=== PATIENT | female | born 1970 | race Caucasian/White ===

== ENCOUNTER → 2017-04-24 11:21 | Outpatient (CLI) | payer OTHER, SELFPAY ==
[2016-07-05 15:48] VITALS: BP 111/70; BMI 26.3
--- NOTE | 2017-04-24 11:36 | RAD_ITS ---
STUDY: X-RAY - LUMBAR SPINE REASON FOR EXAM: Female, 46 years old. Low back pain TECHNIQUE: 3 view(s) of the lumbar spine were obtained. COMPARISON: Previous study of 07/05/2016 FINDINGS: Normal lumbar lordosis. There is no substantial scoliosis. There is a normal alignment of the vertebrae. There is mild diffuse endplate spondylosis. There is mild disc space narrowing at the L5-S1 level. There is no demonstrated fracture. There is a 1.3 cm sclerotic focus of the L3 body stable in the interval and most likely representing benign process such as bone island. RAD/Lumbar Spine 2 or 3 Views IMPRESSION: Degenerative changes of the spine, as detailed above. 1.3 cm sclerotic focus of the L3 body stable in the interval and most likely representing benign process such as bone island. There is no evidence of fracture or spondylolisthesis. Electronically Signed: Mikel Bridges MD at 23:57 EST , Service support ,
== END ==
PROVIDERS: Family Provider Family Medicine; PCP Family Medicine
DX: M54.5 Low back pain (principal)
CPT/HCPCS: 72100

== ENCOUNTER 2017-05-07 15:00 | Outpatient (RCR) | payer OTHER, SELFPAY ==
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
--- NOTE | 2017-04-26 17:39 | HP.PTREVAL_ITS ---
Stefanie Anderson, , DONNY.CHRISTIANE It has been my pleasure to treat KRUNAL RUBIO over the last 6 visits for S/ P LUMBAR MICRODISCECTOMY LEFT L5S1 02/08/17 FOR HNP. Please see the progress note below for an update on the physical therapy plan of care! Subjective: pt seen by PT prior to this session. RX time was short d/t PT ran over w/ pt. Objective/Function: pt scheduled for 2 appt in the pool. pt is involved in the care of her father w/ cancer and is trying her hardest to get her PT appts taken care of. Plan Plan: Cont w/ POC both on land and in pool. Goals Goal 1:: DECREASE C/O LOW BACK AND LLE SX'S. Goal Time Frame: 4-6 Weeks Goal Progress: Progressing Goal 2:: IMPROVE LIFTING, SITTING, STANDING, SLEEP, TRAVEL AND HOMEMAKING/ EMPLYMENT FUNCTION. Goal Time Frame: 4-6 Weeks Goal Progress: Progressing Goal 3:: INSTRUCT IN PROPHYLAXIS Goal Time Frame: 4-6 Weeks Goal Progress: Progressing Anticipated Interventions Patient/Client Instruction: Educate patient on: Condition, Plan of Care, Risk Factors, Benefits of Fitness Program For the Purpose of:: To improve self management Therapeutic Exercise to Include: Strength training, Body mechanics, Postural training, Flexibilty training, Dynamic Lumbar Stabilization For the Purpose of:: To improve ability of physical actions for home/community/ work/leisure Cryotherapy (ice pack, ice massage): Yes Thermo therapy (hot pack): Yes For the Purpose of:: To decrease pain, To decrease swelling/inflammation Please do not hesitate to contact me at [phone] by phone or Fax: if you have questions or concerns regarding this new plan of care! Sincerely, Jasmyne Marinelli
--- NOTE | 2017-09-21 14:26 | HP.PTDCNRP_ITS ---
HP - Discharge Summary (1) - Patient Information KRUNAL RUBIO was seen in my office for initial evaluation on 04/05/17. The following Plan of Care was established for this patient: Initial Frequency: 2-3x /Week Initial Duration: 4-6 Weeks - Anticipated Interventions Patient/Client Instruction: Educate patient on: Condition, Plan of Care, Risk Factors, Benefits of Fitness Program For the Purpose of:: To improve self management Therapeutic Exercise to Include: Strength training, Body mechanics, Postural training, Flexibilty training, Dynamic Lumbar Stabilization For the Purpose of:: To improve ability of physical actions for home/community/ work/leisure Cryotherapy (ice pack, ice massage): Yes Thermo therapy (hot pack): Yes For the Purpose of:: To decrease pain, To decrease swelling/inflammation This patient was last seen in our office 05/07/17. Pertinent comments regarding their Physical therapy will appear below: This patient has not returned to Physical Therapy and is appropriate to return to MD for further follow-up as needed. At this point I will be discontinuing this patient from physical therapy. I would be happy to see this patient again in the future if found appropriate by the physician. Thank you! Jasmyne Marinelli
== END 2017-05-07 19:00 | disposition home or self-care (01) ==
LOC: PT 15:00
PROVIDERS: Family Provider Family Medicine; PCP Family Medicine; Visit Provider Nurse Practitioner Acute Care
DX: M51.26 Other intervertebral disc displacement, lumbar region (principal)
CPT/HCPCS: 97110; 97113; 97162; 97530

== ENCOUNTER 2017-08-04 15:00 | Outpatient (RCR) | payer OTHER, SELFPAY ==
--- NOTE | 2017-07-14 16:48 | HP.PTEVAL ---
Patient's Visit Information KRUNAL RUBIO is a 46 year old F referred to Physical Therapy by Kanu Jackson with a diagnosis of LOW BACK PAIN. Date of Evaluation: 07/14/17 Physical Therapist: Phong Moore, PT, - Visit Plan Frequency: 2x /Week Duration: 4 Weeks Plan: CHELSEA EX REIL EVERY 1-2 HOURS,LE FLEXABLITY,PROGRESS WITH DLS FOCUS ON TA NUETRAL,MODALITIES PRN POSTIRAL EX'S - Subjective Subjective: This 46 y/o female presents to physical therapy with low back pain . Patient had lumbar disectomy Feb [address] Garza at [facility]. Patient pain better in leg post surgery.Patient had couple session PT due to personal issue. Seen last Feb ,but attempted to see a follow up. So, decided to see family DR for PT. Prior to surgery patient had radicular symptoms in legs ,tried PT made symptoms worse then MRI.Due to patient unable to do therapy with personal issues in life unable to exercise ,patient has concerns of budging. Patient has intermmtant pain in lateral hips and lumbar pain. Symptoms wosre with job demands ,standing,ocassionally bending. Symptoms better with walking ,moving around. Coughing -sneezing negative.Bowel/bladder -. Denies parathesia/tingling. SOCIAL: single. 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 GAIT: normal baldomero reciprocal. PALAPTION: mild tenderness L-S spine. NEURO: denies parathesia/tingling,reflexes L3-4,L4-5,L5-S1 2/3. MMT: quads/hams /hip/ankle 4/5. FLEXABLITY; hams min/mod left. LUMBAR ROM: flexion min loss,extension min loss,side glides min loss. SYMMTRIES : align - Special Tests L/S Slump test left side: Negative L/S Slump test right side: Negative L/S Left Straight Leg Raise: Negative L/S Right Straight Leg Raise: Negative Lumbar Standing: Flexion - Mechanical Response: No effect Lumbar Standing: Flexion - Symptoms During Testing: No effect Lumbar Standing: Flexion - Symptoms After Testing: No effect Lumbar Standing: Extension - Mechanical Response: No effect Lumbar Standing: Extension - Symptoms During Testing: No effect Lumbar Standing: Extension - Symptoms After Testing: No effect Lumbar Lying: Flexion - Mechanical Response: No effect Lumbar Lying: Flexion - Symptoms During Testing: No effect Lumbar Lying: Flexion - Symptoms After Testing: No effect Lumbar Lying: Extension - Mechanical Response: No effect Lumbar Lying: Extension - Symptoms During Testing: Decreases Lumbar Lying: Extension - Symptoms After Testing: Better - Goals Goal 1:: Independant with HEP Goal Time Frame: 4-6 Weeks Goal 2:: Independant with posture/body mechanics Goal Time Frame: 4-6 Weeks Goal 3:: Decrease episode of lumbar and leg symptoms by 70 % or greater to improve function. Goal Time Frame: 4-6 Weeks Goal 4:: Patient improve lumbar ROM for function of recovery Goal Time Frame: 4-6 Weeks Goal 5:: Patient be able to perform ADL'S anf job demands with min limitations Goal Time Frame: 4-6 Weeks - Rehabilitation Potential Physical Therapy Diagnosis: This patient presents with low back pain which patient undwerwent s/p lumbar disectomy in Jan 2017 never finished PT due to personal issues ,return to work and stated pain intermmittant in lumbar and leg and occassional swelling in knee.Patient requires further education posture/body mechanics,DLS,chelsea ex's Rehabilitation Potential: Good - Anticipated Interventions Patient/Client Instruction: Educate patient on: Condition, Plan of Care For the Purpose of:: To decrease pain, To increase ROM, To improve muscle performance and motor function, To improve ability to perform ADL's, To increase tolerance to activity/condition/position, To improve performance and independence with ADL's, To improve ability of physical actions for home/community/work/leisure, To improve health of tissue, To decrease soft tissue restriction, To increase flexibility/ROM, To reduce risk of recurrence, To improve ability to perform tasks related to life management Therapeutic Exercise to Include: Strength training, Postural training, Flexibilty training, Dynamic Lumbar Stabilization, Chelsea Exercises For the Purpose of:: To decrease pain, To increase ROM, To improve muscle performance and motor function, To improve ability to perform ADL's, To increase tolerance to activity/condition/position, To improve ability of physical actions for home/community/work/leisure, To improve health of tissue, To decrease soft tissue restriction, To increase flexibility/ROM, To reduce risk of recurrence, To improve health and function, To improve ability to perform tasks related to life management TENS: Yes IF ES: Yes Cryotherapy (ice pack, ice massage): Yes Thermo therapy (hot pack): Yes Ultrasound (thermal/non thermal): Yes For the Purpose of:: To decrease pain, To increase ROM, To improve nutrient delivery to tissue, To increase oxygenation perfusion, To improve health of tissue, To decrease soft tissue restriction Thank you for the opportunity to evaluate your patient. For Medicare and Medicare HMO plans, please review the plan of care and approve it. It will need to be FAXED BACK to us at [phone] for Medicare purposes. Please let me know if there are questions or concerns regarding this plan of care. Physician Signature: Date:
--- NOTE | 2017-11-16 10:36 | HP.PTDCNRP_ITS ---
HP - Discharge Summary (1) - Patient Information KRUNAL RUBIO was seen in my office for initial evaluation on 07/14/17. The following Plan of Care was established for this patient: Initial Frequency: 2x /Week Initial Duration: 4 Weeks - Anticipated Interventions Patient/Client Instruction: Educate patient on: Condition, Plan of Care For the Purpose of:: To decrease pain, To increase ROM, To improve muscle performance and motor function, To improve ability to perform ADL's, To increase tolerance to activity/condition/position, To improve performance and independence with ADL's, To improve ability of physical actions for home/ community/work/leisure, To improve health of tissue, To decrease soft tissue restriction, To increase flexibility/ROM, To reduce risk of recurrence, To improve ability to perform tasks related to life management Therapeutic Exercise to Include: Strength training, Postural training, Flexibilty training, Dynamic Lumbar Stabilization, Chelsea Exercises For the Purpose of:: To decrease pain, To increase ROM, To improve muscle performance and motor function, To improve ability to perform ADL's, To increase tolerance to activity/condition/position, To improve ability of physical actions for home/community/work/leisure, To improve health of tissue, To decrease soft tissue restriction, To increase flexibility/ROM, To reduce risk of recurrence, To improve health and function, To improve ability to perform tasks related to life management TENS: Yes IF ES: Yes Cryotherapy (ice pack, ice massage): Yes Thermo therapy (hot pack): Yes Ultrasound (thermal/non thermal): Yes For the Purpose of:: To decrease pain, To increase ROM, To improve nutrient delivery to tissue, To increase oxygenation perfusion, To improve health of tissue, To decrease soft tissue restriction This patient was last seen in our office 08/04/17. Pertinent comments regarding their Physical therapy will appear below: Patient seen for PT for lumbar pain . Patient PT constisted of DLS,modalities , chelsea ex's and postural ex's. Patient progressing with decreasing pain At this point I will be discontinuing this patient from physical therapy. I would be happy to see this patient again in the future if found appropriate by the physician. Thank you! Phong Moore, PT,
== END 2017-08-04 19:00 | disposition home or self-care (01) ==
LOC: PT 15:00
PROVIDERS: Family Provider Family Medicine; PCP Family Medicine; Visit Provider Family Medicine
DX: M54.5 Low back pain (principal)
CPT/HCPCS: 97110; 97162

== ENCOUNTER 2017-09-12 13:17 | Emergency (ER) | payer OTHER, SELFPAY ==
[2017-09-12 13:18] VITALS: BP 121/68; PULSE 86; RESP 17; TEMP 36.9; O2SAT 96; BMI 27.8
--- NOTE | 2017-09-12 14:30 | ED.VISSUMM ---
- ER Visit Summary Date of Service: 09/12/17 Chief Complaint: [] Lumbar back pain surgery January 2017 History of Present Illness: The patient is a 46 F [] patient reports history of lumbar back pain requiring surgery as above, she indicates that intermittent lumbar back pain and pain shooting to her buttock, since that surgery she did not have total relief of her symptoms, she recently indicates she started new activities she is bending quite a bit more she indicates she has not followed up with her back surgeons recently, she has been taking nonsteroidal anti-inflammatories with partial relief of her symptoms she has no bowel or bladder complaints no perineal anesthesia she is able to execute her normal daily activities without difficulty she presents for pain control Physical Examination: [] She is in no distress her vital signs are normal she has a healed incision to lumbar back this is the focus of her pain head neck chest unremarkable abdomen soft nontender the back is subjectively discomfort but nothing focal she is able to stand and walk without difficulty she can heel raise toe raise toe raise bend her knees and walk around the room without difficulty no signs of cauda equina or anything acute, she assures me this is the pain she has had intermittently before and since her lumbar back surgery Test Results: [] Emergency Department Course and Treatment: [] Time there does not appear to be anything acute or life-threatening or new I have explained the above to the patient that her pain management cannot be assumed from the emergency department and that her pain management should be assumed based on the recommendations of multiple regulators by her primary care physicians or her back specialist, at this time she was given Toradol IM she will be discharged on Naprosyn 500 twice daily and she will be given 4 [place] tablets to use as a rescue medicine with instructions that all further pain management must be by her primary care physicians or other providers Treatment Plan: [] Disposition: [] Home stable Impression: [] Acute recurrent lumbar back pain recent lumbar back surgery January 2017 This note was generated with [employer] dictation software. It may contain incorrect words, spelling, and punctuation that were not noted in review of the chart prior to signing ED Disposition - Plan for ED Patient: Chief Complaint: Back Referrals: Kanu Jackson MD [Primary Care Provider] -
--- NOTE | 2017-09-12 14:33 | ED.DEP ---
ED Disposition - Plan for ED Patient: Chief Complaint: Back Instructions: ED Spasm Back No Trauma Prescriptions: Hydrocodone Bitart/Apap 5-325 [[place] 5MG-325MG] 1 tab PO Q4H PRN PRN 2 Days #4 tab PRN Reason: Pain Naproxen [Naprosyn] 500 mg PO BID PRN #20 tab Referrals: Kanu Jackson MD [Primary Care Provider] -
[2017-09-12] MEDS: Ketorolac 60 MG/2 ML Vial IM (14:45)
[2017-09-12 15:01] VITALS: PULSE 88; RESP 16
== END 2017-09-12 15:02 | disposition home or self-care (01) ==
PROVIDERS: Emergency Provider Emergency Medicine; Family Provider Family Medicine; PCP Family Medicine
DX: M54.5 Low back pain (principal); Z98.890 Other specified postprocedural states
CPT/HCPCS: 96372; 99283

== ENCOUNTER → 2017-11-04 16:54 | Outpatient (CLI) | payer OTHER, SELFPAY ==
[2017-11-04 17:46] LABS: Anion Gap 9 (5-15); BUN 16 mg/dL (7-18); BUN/Creat Ratio 20.7 RATIO (10-20); CRP, High Sensitivity Cardiac 1.67 mg/L; Calcium,Total 9.2 mg/dL (8.5-10.1); Chloride 106 mmol/L (98-107); Cholesterol 210 mg/dL (200); Creatinine, Serum 0.77 mg/dL (0.55-1.02); EST Glomerular Filtration Rate 84 mL/min (>60); Est Glom Filt Rate - Afr Amer 102 mL/min (>60); Glucose 108 mg/dL (74-106); High Density Lipoprotein 70 mg/dL; Potassium 3.8 mmol/L (3.5-5.1); Sodium Level 141 mmol/L (136-145); Triglycerides 111 mg/dL; Very Low Density Lipoprotein 22 mg/dL (5-40)
[2017-11-04 18:17] LABS: Erythrocyte Sedimentation Rate 9 mm/hr (0-20)
[2017-11-09 10:27] LABS: ANTINUCLEAR ANTIBODIES DIRECT Negative (Negative)
== END ==
PROVIDERS: Family Provider Family Medicine; PCP Family Medicine; Visit Provider Family Medicine
DX: Z00.00 Encounter for general adult medical examination without abnormal findings (principal); M25.50 Pain in unspecified joint
CPT/HCPCS: 36415; 80048; 80061; 85652; 86038; 86141

== ENCOUNTER → 2018-03-02 18:41 | Outpatient (CLI) | payer OTHER, SELFPAY ==
--- OUTSIDE RECORDS SUMMARY | 2018-04-18 22:34 | XMS RPT_ITS ---
:1970 Author Organization OHIP Care Team Providers Name Role Phone No Doctor Assigned, Nodr Admitting Unavailable No Doctor Assigned, Nodr Attending Unavailable MARCELO SANON Attending Unavailable Kanu Jackson Attending Unavailable Kanu Jackson Primary Care Unavailable Kanu Jackson Referring Unavailable Stefanie Anderson MEAT PULLER-C Attending Unavailable Stefanie Anderson MEAT PULLER-C Referring Unavailable Kanu Vicente Primary Care Unavailable HAYLEY JARAMILLO Attending Unavailable HAYLEY JARAMILLO Referring Unavailable Kanu Vicente Primary Care Unavailable Kanu Jackson Attending Unavailable Kanu Jackson Primary Care Unavailable Renetta Kanu Referring Unavailable Kanu Jackson Primary Care Unavailable Randy Puente Attending Unavailable Renetta, Kanu Attending Unavailable Renetta, Kanu Primary Care Unavailable PROBLEMS PROBLEMS DATE TYPE CONDITION / CODE ATTENDING STATUS SOURCE 03/03/2018 Unknown R30.0 - Dysuria / Kanu Jackson Active [facility] R30.0(ICD-10) [facility] Repository 11/04/2017 Unknown M25.50 - Pain in Kanu Jackson Active [facility] unspecified joint / Community M25.50(ICD-10) Hospital Repository 11/04/2017 Unknown Z00.00 - Encounter Kanu Jackson Active [facility] for general adult [facility] without abnormal Repository findings / Z00.00(ICD-10) 09/13/2017 Admitting Lumbago with KALAPODIS, Civo Diagnosis sciatica, left side MARCEL[place] ([place] / M54.42(ICD-10) Repository 09/12/2017 Unknown R52 - Pain, Kwame, Active [facility] unspecified / Randy Community R52(ICD-10) Hospital Repository 11/18/2017 Unknown M54.5 - Low back Kanu Jackson Active [place] pain / Community M54.5(ICD-10) Hospital Repository 09/23/2017 Unknown M51.26 - Other Ops[place]nick, Active [place] intervertebral disc Stefanie MEAT PULLER-C [facility] lumbar region / Repository M51.26(ICD-10) PROCEDURES PROCEDURES No Procedure Records FoundRESULTS RESULTS Observed: 03/02/2018 Status: F Source: [facility] CULTURE, URINE 3:30 PM [facility] [place] [facility] Urine Culture ORGANISM 1: Mixed Gram Positive Organisms Conklin Count 11,000-25,000 MIX CULTURE Mixed contaminants. Submit a new specimen if indicated. Performed By: #### M100.0650 #### [facility] [place], [place], [id number] BASIC METABOLIC Collected: 11/04/2017 Status: F Source: [facility] PROFILE (BMP) 4:56 PM [facility] REPOSITORY TYPE CODE TESTS RESULT OUT OF RANGE REFERENCE UNITS LAB L501.0100 74-106 mg/dL High GLU 108 Result Comment: Fasting Glucose result from 100 to 125 mg/dL suggests IMPAIRED HOMEOSTASIS per A.D.A. criteria. Please note revised GLUCOSE reference range effective 2017. LAB L501.1000 7-18 mg/dL Normal BUN 16 LAB L501.1100 0.55-1.02 mg/dL Normal CREAT,SERUM 0.77 Result Comment: The validity of the calculated GFR AND GFRAA in patients over 70 years has not been determined. Clinical correlation is essential. LAB L501.1110 >60 mL/min Normal EST GFR 84 Result Comment: Non- GFR Calc LAB L501.1115 >60 mL/min Normal EST GFR - AA 102 Result Comment: GFR Calc LAB L501.1300 10-20 RATIO High BUN/CRE 20.7 LAB L501.2200 8.5-10.1 mg/dL CA Normal 9.2 LAB L501.5300 136-145 mmol/L NA Normal 141 LAB L501.5600 3.5-5.1 mmol/L K Normal 3.8 LAB L501.5900 98-107 mmol/L CL Normal 106 LAB L501.6100 21.0-32.0 mmol/L Normal CO2 26.0 LAB L501.6200 5-15 Normal GAP 9 Performed By: #### L500.2500, L500.4100, L501.6750 #### [facility] [address] [place], [address] LIPID PROFILE Collected: 11/04/2017 Status: F Source: BARNET 4:56 PM [facility] [place] [facility] TYPE CODE TESTS RESULT OUT OF RANGE REFERENCE UNITS LAB L501.4900 200 mg/dL High CHOL 210 Result Comment: <200 mg/dL Desirable 200-240 mg/dL Borderline >240 mg/dL High Risk LAB L501.5000 mg/dL Normal TRIG 111 Result Comment: The drugs N-Acetylcysteine and Metamizole may falsely depress this assay. Serum Triglycerides Reference Interval Normal <150 mg/dL Borderline high 150 - 199 mg/dL High 200 - 499 mg/dL Very High > or = 500 mg/dL LAB L501.6400 mg/dL Normal HDL 70 Result Comment: The drugs N-Acetylcysteine and Metamizole may falsely depress this assay. Reference Range HDL <40 mg/dL Low HDL Cholesterol HDL >or= 60 mg/dL High HDL Cholesterol LAB L501.6500 0-130 mg/dL Normal LDL 118 LAB L501.6600 5-40 mg/dL Normal VLDL 22 Performed By: #### L500.2500, L500.4100, L501.6750 #### [facility] [address] [place], [address] CRP, HIGH SENSITIVITY Collected: 11/04/2017 Status: F Source: [facility] CARDIAC 4:56 PM [facility] [place] [facility] TYPE CODE TESTS RESULT OUT OF RANGE REFERENCE UNITS LAB L501.6750 mg/L Normal CRP HIGH 1.67 SENS Result Comment: Low Relative Risk of CVD <1.0 mg/L Average Relative Risk of CVD 1.0 - 3.0 mg/L High Relative Risk of CVD >3.0 mg/L Performed By: #### L500.2500, L500.4100, L501.6750 #### [facility] [address] [facility] [place], [address] ERYTHROCYTE SED RATE Collected: 11/04/2017 Status: F Source: BARNET 4:56 PM [facility] [place] [facility] TYPE CODE TESTS RESULT OUT OF RANGE REFERENCE UNITS LAB L102.0000 0-20 mm/hr Normal SED RATE 9 Performed By: #### L101.9900 #### [facility] [place], [address] ANTINUCLEAR ANTIBODIES Collected: 11/04/2017 Status: F Source: [facility] DIRECT 4:56 PM [facility] [place] [facility] TYPE CODE TESTS RESULT OUT OF RANGE REFERENCE UNITS LAB L3100.5475 Negative Normal Negative LYDIA-DIRECT Result Comment: Performed at: - [facility] [id number] Bias Binding Folder: Trung Lind PhD, Phone: [phone] Performed By: #### L3100.5475 #### [facility] (refer to report for specific site) refer to report for address and phone number EMERGENCY DEPARTMENT Observed: 09/12/2017 Status: F Source: [facility] SUMMARY 3:24 PM [facility] [place] [facility] Medical Records Department [address] [place] [address] Emergency Department Summary 09/12/17 1430 MR#: [id number] Acct: [id number] Name: GIA RUBIO Rep #: [id number] : 1970 46 From: Randy Puente MD PCP: Kanu Jackson MD Status: DEP ER - ER Visit Summary Date of Service: 09/12/17 Chief Complaint: [] Lumbar back pain surgery January 2017 History of Present Illness: The patient is a 46 F [] patient reports history of lumbar back pain requiring surgery as above, she indicates that intermittent lumbar back pain and pain shooting to her buttock, since that surgery she did not have total relief of her symptoms, she recently indicates she started new activities she is bending quite a bit more she indicates she has not followed up with her back surgeons recently, she has been taking nonsteroidal anti-inflammatories with partial relief of her symptoms she has no bowel or bladder complaints no perineal anesthesia she is able to execute her normal daily activities without difficulty she presents for pain control Physical Examination: [] She is in no distress her vital signs are normal she has a healed incision to lumbar back this is the focus of her pain head neck chest unremarkable abdomen soft nontender the back is subjectively discomfort but nothing focal she is able to stand and walk without difficulty she can heel raise toe raise toe raise bend her knees and walk around the room without difficulty no signs of cauda equina or anything acute, she assures me this is the pain she has had intermittently before and since her lumbar back surgery Test Results: [] Emergency Department Course and Treatment: [] Time there does not appear to be anything acute or life-threatening or new I have explained the above to the patient that her pain management cannot be assumed from the emergency department and that her pain management should be assumed based on the recommendations of multiple regulators by her primary care physicians or her back specialist, at this time she was given Toradol IM she will be discharged on Naprosyn 500 twice daily and she will be given 4 [place]amp[place] tablets to use as a rescue medicine with instructions that all further pain management must be by her primary care physicians or other providers Treatment Plan: [] Disposition: [] Home stable Impression: [] Acute recurrent lumbar back pain recent lumbar back surgery January 2017 This note was generated with Beijingyichengation software. It may contain incorrect words, spelling, and punctuation that were not noted in review of the chart prior to signing ED Disposition - Plan for ED Patient: Chief Complaint: Back Referrals: Kanu Jackson MD [Primary Care Provider] - What to do if you have Problems For any increased pain, shortness of breath, bleeding, nausea or vomiting, chest pain, or any unexpected problems, contact your Primary Care Provider. Call [facility] ([phone]) or report to the closest Emergency Room. Call 911 if necessary. 09/12/17 1524 <Electronically signed by Randy Puente MD> Date Randy Puente MD Cosigner Signature (If Indicated): Date CC: Kanu Jackson MD DISCHARGE INSTRUCTION Observed: 09/12/2017 Status: F Source: BARNET 2:34 PM [facility] [place] [facility] Medical Records Department [address] [place] [address] Discharge Instruction 09/12/17 1433 MR#: [id number] Acct: [id number] Name: GIA RUBIO Rep #: [id number] : 1970 46 From: Randy Puente MD PCP: Kanu Jackson MD Status: REG ER ED Disposition - Plan for ED Patient: Chief Complaint: Back Instructions: ED Spasm Back No Trauma Prescriptions: Hydrocodone Bitart/Apap 5-325 [Hampden 5MG-325MG] 1 tab PO Q4H PRN PRN 2 Days #4 tab PRN Reason: Pain Naproxen [Naprosyn] 500 mg PO BID PRN #20 tab Referrals: Kanu Jackson MD [Primary Care Provider] - What to do if you have Problems For any increased pain, shortness of breath, bleeding, nausea or vomiting, chest pain, or any unexpected problems, contact your Primary Care Provider. Call [facility] ([phone]) or report to the closest Emergency Room. Call 911 if necessary. 09/12/17 1434 <Electronically signed by Randy Puente MD> Date Randy Puente MD Cosigner Signature (If Indicated): Date CC: Kanu Jackson MD INITAL EVALUATION (1) Observed: 07/15/2017 Status: F Source: ELIZABETH - PT 10:56 AM [facility] [place] [facility] [address] [place] [address] Fax REHABILITATION SERVICES INITIAL EVALUATION MR#: [id number] Acct: [id number] Name: GIA RUBIO Rep #: [id number] : 1970 46 From: Phong Moore PT, Cert. MDT, OCS Referring Dr.: Kanu Jackson MD Status: REG RCR Insurance: [facility] SELF PAY INSURANCE Patient's Visit Information GIA RUBIO is a 46 year old F referred to Physical Therapy by Kanu Jackson with a diagnosis of LOW BACK PAIN. Date of Evaluation: 07/14/17 Physical Therapist: Phong Moore PT, - Visit Plan Frequency: 2x /Week Duration: 4 Weeks Plan: ADILENE EX REIL EVERY 1-2 HOURS,LE FLEXABLITY,PROGRESS WITH DLS FOCUS ON TA NUETRAL,MODALITIES PRN POSTIRAL EX'S - Subjective Subjective: This 46 y/o female presents to physical therapy with low back pain . Patient had lumbar disectomy Feb [address] Garza at [facility]. Patient pain better in leg post surgery.Patient had couple session PT due to personal issue. Seen last Feb ,but attempted to see a follow up. So, decided to see family DR for PT. Prior to surgery patient had radicular symptoms in legs ,tried PT made symptoms worse then MRI.Due to patient unable to do therapy with personal issues in life unable to exercise ,patient has concerns of budging. Patient has intermmtant pain in lateral hips and lumbar pain. Symptoms wosre with job demands ,standing,ocassionally bending. Symptoms better with walking ,moving around. Coughing -sneezing negative.Bowel/bladder -. Denies parathesia/tingling. SOCIAL: single. 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 GAIT: normal baldomero reciprocal. PALAPTION: mild tenderness L-S spine. NEURO: denies parathesia/tingling,reflexes L3-4,L4-5,L5-S1 2/3. MMT: quads/hams /hip/ankle 4/5. FLEXABLITY; hams min/mod left. LUMBAR ROM: flexion min loss,extension min loss,side glides min loss. SYMMTRIES : align - Special Tests L/S Slump test left side: Negative L/S Slump test right side: Negative L/S Left Straight Leg Raise: Negative L/S Right Straight Leg Raise: Negative Lumbar Standing: Flexion - Mechanical Response: No effect Lumbar Standing: Flexion - Symptoms During Testing: No effect Lumbar Standing: Flexion - Symptoms After Testing: No effect Lumbar Standing: Extension - Mechanical Response: No effect Lumbar Standing: Extension - Symptoms During Testing: No effect Lumbar Standing: Extension - Symptoms After Testing: No effect Lumbar Lying: Flexion - Mechanical Response: No effect Lumbar Lying: Flexion - Symptoms During Testing: No effect Lumbar Lying: Flexion - Symptoms After Testing: No effect Lumbar Lying: Extension - Mechanical Response: No effect Lumbar Lying: Extension - Symptoms During Testing: Decreases Lumbar Lying: Extension - Symptoms After Testing: Better - Goals Goal 1:: Independant with HEP Goal Time Frame: 4-6 Weeks Goal 2:: Independant with posture/body mechanics Goal Time Frame: 4-6 Weeks Goal 3:: Decrease episode of lumbar and leg symptoms by 70 % or greater to improve function. Goal Time Frame: 4-6 Weeks Goal 4:: Patient improve lumbar ROM for function of recovery Goal Time Frame: 4-6 Weeks Goal 5:: Patient be able to perform ADL'S anf job demands with min limitations Goal Time Frame: 4-6 Weeks - Rehabilitation Potential Physical Therapy Diagnosis: This patient presents with low back pain which patient undwerwent s/p lumbar disectomy in Jan 2017 never finished PT due to personal issues ,return to work and stated pain intermmittant in lumbar and leg and occassional swelling in knee.Patient requires further education posture/body mechanics,DLS,adilene ex's Rehabilitation Potential: Good - Anticipated Interventions Patient/Client Instruction: Educate patient on: Condition, Plan of Care For the Purpose of:: To decrease pain, To increase ROM, To improve muscle performance and motor function, To improve ability to perform ADL's, To increase tolerance to activity/condition/position, To improve performance and independence with ADL's, To improve ability of physical actions for home/community/work/leisure, To improve health of tissue, To decrease soft tissue restriction, To increase flexibility/ROM, To reduce risk of recurrence, To improve ability to perform tasks related to life management Therapeutic Exercise to Include: Strength training, Postural training, Flexibilty training, Dynamic Lumbar Stabilization, Adilene Exercises For the Purpose of:: To decrease pain, To increase ROM, To improve muscle performance and motor function, To improve ability to perform ADL's, To increase tolerance to activity/condition/position, To improve ability of physical actions for home/community/work/leisure, To improve health of tissue, To decrease soft tissue restriction, To increase flexibility/ROM, To reduce risk of recurrence, To improve health and function, To improve ability to perform tasks related to life management TENS: Yes IF ES: Yes Cryotherapy (ice pack, ice massage): Yes Thermo therapy (hot pack): Yes Ultrasound (thermal/non thermal): Yes For the Purpose of:: To decrease pain, To increase ROM, To improve nutrient delivery to tissue, To increase oxygenation perfusion, To improve health of tissue, To decrease soft tissue restriction Thank you for the opportunity to evaluate your patient. For Medicare and Medicare HMO plans, please review the plan of care and approve it. It will need to be FAXED BACK to us at [phone] for Medicare purposes. Please let me know if there are questions or concerns regarding this plan of care. Physician Signature: Date: <Electronically signed by Phong Moore PT, Cert. T, OCS> 07/15/17 1056 CC: Kanu Jackson MD ANTON Signed For Medicare only, by signing this I certify the plan of care. Physicians Signature Date RE-EVALUATION - PT (1) Observed: 04/26/2017 Status: F Source: BARNET 5:39 PM [facility] [place] [facility] [facility] [place] [address] Fax REEVALUATION / MEDICARE RECERTIFICATION PHYSICAL THERAPY MR#: [id number] Acct: [id number] Name: GIA RUBIO Rep #: [id number] : 1970 46 From: Jasmyne Marinelli PT, Cert. T Referring Dr.: Stefanie Anderson Status: REG RCR Insurance: [facility] SELF PAY INSURANCE Stefanie Anderson, , DONNY.CHRISTIANE It has been my pleasure to treat GIA RUBIO over the last 6 visits for S/P LUMBAR MICRODISCECTOMY LEFT L5S1 02/08/17 FOR HNP. Please see the progress note below for an update on the physical therapy plan of care! Subjective: pt seen by PT prior to this session. RX time was short d/t PT ran over w/ pt. Objective/Function: pt scheduled for 2 appt in the pool. pt is involved in the care of her father w/ cancer and is trying her hardest to get her PT appts taken care of. Plan Plan: Cont w/ POC both on land and in pool. Goals Goal 1:: DECREASE C/O LOW BACK AND LLE SX'S. Goal Time Frame: 4-6 Weeks Goal Progress: Progressing Goal 2:: IMPROVE LIFTING, SITTING, STANDING, SLEEP, TRAVEL AND HOMEMAKING/EMPLYMENT FUNCTION. Goal Time Frame: 4-6 Weeks Goal Progress: Progressing Goal 3:: INSTRUCT IN PROPHYLAXIS Goal Time Frame: 4-6 Weeks Goal Progress: Progressing Anticipated Interventions Patient/Client Instruction: Educate patient on: Condition, Plan of Care, Risk Factors, Benefits of Fitness Program For the Purpose of:: To improve self management Therapeutic Exercise to Include: Strength training, Body mechanics, Postural training, Flexibilty training, Dynamic Lumbar Stabilization For the Purpose of:: To improve ability of physical actions for home/community/work/leisure Cryotherapy (ice pack, ice massage): Yes Thermo therapy (hot pack): Yes For the Purpose of:: To decrease pain, To decrease swelling/inflammation Please do not hesitate to contact me at [phone] by phone or if you have questions or concerns regarding this new plan of care! Sincerely, Jasmyne Marinelli <Electronically signed by Jasmyne Marinelli PT, Cert. MDT> 04/26/17 6891 CC: Stefanie Anderson; Kanu Jackson MD HORACIO Signed For Medicare only, by signing this I certify the plan of care. Physicians Signature Date LUMBAR SPINE 2 OR 3 Observed: 04/24/2017 Status: F Source: [place] VIEWS 11:35 AM [facility] [place] [facility] Imaging Services [address] [place] [address] Lumbar Spine 2 or 3 Views MR#: [id number] Acct: [id number] Name: GIA RUBIO Rep #: [id number] : 1970 F 46 From: Mikel Bridges MD PCP: Kanu Jackson MD Status: REG CLI Study: Lumbar Spine 2 or 3 Views Date of Exam: 04/24/17 Exam# [id number] Ordering Dr: [place]e Out o. STUDY: X-RAY - LUMBAR SPINE REASON FOR EXAM: Female, 46 years old. Low back pain TECHNIQUE: 3 view(s) of the lumbar spine were obtained. COMPARISON: Previous study of 07/05/2016 FINDINGS: Normal lumbar lordosis. There is no substantial scoliosis. There is a normal alignment of the vertebrae. There is mild diffuse endplate spondylosis. There is mild disc space narrowing at the L5-S1 level. There is no demonstrated fracture. There is a 1.3 cm sclerotic focus of the L3 body stable in the interval and most likely representing benign process such as bone island. RAD/Lumbar Spine 2 or 3 Views IMPRESSION: Degenerative changes of the spine, as detailed above. 1.3 cm sclerotic focus of the L3 body stable in the interval and most likely representing benign process such as bone island. There is no evidence of fracture or spondylolisthesis. Electronically Signed: Mikel Bridges MD at 23:57 EST , Service support , CC: OUT OF TOWN DOCTOR; Kanu Jackson MD Unemployment Claims Adjudicator: Signed ALLERGIES ALLERGIES DATE TYPE / CODE NAME / CODE REACTION SEVERITY SOURCE 09/12/2017 Drug oxycodone Nausea Unknown [facility] Allergy/416 HCl/[id number]([facility] 455395(SNOM XNORM) Repository ED CT) ENCOUNTERS ENCOUNTERS ADMIT/DISCHARGE ACCOUNT NUMBER ADMITTING ENCOUNTER LOCATION SOURCE CLASS 04/01/2018 [id number] No Doctor Ambulatory [facility] Nodr ding:SH.[facility] B Repository 03/02/2018 [id number] Ambulatory [facility] ding:LABSPEC Repository 11/04/2017 [id number] Ambulatory [facility] ding:MFPLAB Repository 09/13/2017/09/14/19 [id number] Emergency [facility] [place] [address] DRoom: System ([place]) D354Zhy: Repository E015 09/12/2017/09/13/19 [id number] Emergency [facility] ding:ED Repository 08/04/2017/08/05/19 [id number] Ambulatory [address] ding:PT Repository 05/07/2017/05/07/19 [id number] Ambulatory [address] ding:PT Repository 04/24/2017 [id number] [facility] ding:RAD Repository PAYERS PAYERS ENCOUNTER GUARANTOR PAYER SUBSCRIBER SOURCE 04/01/2018 GIA Jt Primary GIA J Mc WOODRUFFDOB: Insurance:Medical WOODRUFFDOB: [facility] Number: [id number] System [facility] Effective 8 [facility] Repository [address] [place] [address] Date:2018-04-[address] [place] [id number]: 2039-19-26Dkqv [id number]: Name:Medical [place] () (HP) () 03/02/2018 GIA Jt Primary GIA J Elizabeth [id number] Insurance:MEDICAL WOODRUFFDOB: [facility] [place] Number: Repository [id number]: 330 [id number] [phone] () Date:4305-55-11OU [address] [address]PP: 03/02/2018 Secondary NOT GIVENUNK Elizabeth Insurance:SELF PAY [facility] Number: Effective Repository Date:2018-03-02 11/04/2017 Gia Jt Primary Gia J [place] [id number] Insurance:[facility] [place] Number: Repository [id number]: 330 [id number] [phone] () Date:9736-92-24AR[address] [address]OI: 11/04/2017 Secondary NOT GIVENUNK [facility] Insurance:SELF PAY [facility] Number: Effective Repository Date:2017-11-04 09/12/2017 Gia J Primary Gia J [place] [id number] Insurance:MEDICAL WoodruffDOB: [facility] [id number] Number: Repository [id number]: 330 [id number] [phone] (HP) Date:2910-93-82QK [address] [place] [phone]: 09/12/2017 Secondary NOT GIVENUNK [place] Insurance:SELF PAY [facility] Number: Effective Repository Date:2017-09-12 08/04/2017 Gia J Primary Gia J Elizabeth [id number] Insurance:MEDICAL WoodruffDOB: [facility] 6210[place] Number: Repository [id number]: 330 [id number] [phone] (HP) Date:5050-05-29QL [address] [place] [phone]: 08/04/2017 Secondary NOT GIVENUNK [place] Insurance:SELF PAY [facility] Number: Effective Repository Date:2017-07-08 05/07/2017 Gia J Primary Gia J [place] [id number] Insurance:MEDICAL WoodruffDOB: [facility] [id number] Number: Repository [id number]: 330 [id number] [phone] (HP) Date:7416-68-55MI [address] [place] [phone]: 05/07/2017 Secondary NOT GIVENUNK [place] Insurance:SELF PAY [facility] Number: Effective Repository Date:2017-03-30 04/24/2017 Gia J Primary Gia J [place] [id number] Insurance:MEDICAL WoodruffDOB: [facility] [id number]: Repository [id number]: [phone] [id number] [phone] () Date:[id number], [place] [address]SD: 04/24/2017 Secondary NOT GIVENUNK [place] Insurance:SELF PAY [facility] Number: Effective Repository Date:2017-04-24
--- OUTSIDE RECORDS SUMMARY | 2018-04-18 22:34 | XMS RPT_ITS ---
:1970 Author Organization [facility] Address [address] [place] [id number] Phone Care Team Providers Name Role Phone Aftab GERBER, Alma Granger Unavailable Reason for Visit Reason For Visit Description Start Date Follow-up by complaint Preliminary reason for visit data, not yet signed by the author as of lower back pain Preliminary reason for visit data, not yet signed by the author as of Chief Complaint Chief Complaint Description Start Date lower back pain Preliminary chief complaint data, not yet signed by the author as of Instructions Instruction Description Start Date Patient advised to follow-up with Primary Care Physician for BMI management. Plan of Care Type Date Detail Appointment 12:45 PM Alma GERBER, [address] [facility], [facility], [place], [address], Pending order XR LUMBAR 4VWS FLEX/EX Pending order EMG/NCT bilateral lower extremity Pending order MRI lumbar with and without contrast Pending order EMG/NCT bilateral lower extremity Patient education \[id number] Medications Medication Instructions Start Stop Generic Name NDC Provider Date Date EC-NAPROSYN Take 1 tablet by NAPROXEN [id number] Alma Granger 500 MG TBEC mouth 2 times a 9 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-MARINA BUSPIRONE HCL two tabs a day BUSPIRONE [id number] Scot D 10 MG TABS 0 HCL Garza DO Conditions or Problems Problem Name Problem Onset Status Entry Provider Comment Standard Annotate Code Date Date Description DDD 70646825 Active Alma Granger Degeneration of L5-S1 (degenerative (SNOMED [place] lumbar disc disease), CT) 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 intervertebral lumbar disc S/P lumbar [id number] Active Stefanie History of microdiscectom (SNOMED 04/28 04/[address] [place] [address]) 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 procedure on lumbar spinal structure HNP (herniated 679574316 Active Stefanie 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), CT) 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 intervertebral lumbar disc Allergies, Adverse Reactions, Alerts Allergy Name Reaction Start Date Severity Status Provider Description PERCOCET Critical Active Scot D Garza (OXYCODONE-ACET DO AMINOPHEN TABS) Social History Concept Description Observation Name Observation Value Units Start Date Tobacco use and SMOK ADVICE Yes exposure Preliminary social history data, not yet signed by the author as of Vital Signs Date Name Value Unit Description BMI (Body Mass 27.70 kg/m2 Body Mass Index Index) [Ratio] Preliminary vital sign data, not yet signed by the author as of BP Diastolic 81 mm[Hg] blood pressure, diastolic Preliminary vital sign data, not yet signed by the author as of BP Systolic 116 mm[Hg] blood pressure, systolic Preliminary vital sign data, not yet signed by the author as of Heart Rate 68 /min pulse rate E&M Preliminary vital sign data, not yet signed by the author as of Height 66 [in_us] height E&M Preliminary vital sign data, not yet signed by the author as of Height 168 cm height in centimeters E&M Preliminary vital sign data, not yet signed by the author as of Weight Measured 171 [lb_av] weight E&M Preliminary vital sign data, not yet signed by the author as of Weight Measured 78 kg weight in kilograms E&M Preliminary vital sign data, not yet signed by the author as of Results Date Name Value Unit Range Flag Description Office Visit: Follow-up by complaint, Rm: 41 MEDS REVIEW Done Documentation of current medications (procedure) Preliminary observation data, not yet signed by the author as of SMOK ADVICE Yes Smoking cessation education (procedure) Preliminary observation data, not yet signed by the author as of Preliminary observation data, not yet signed by the author as of Clinical Summary: HMSPatient[facility] OOP account number Procedures No information available. Medications Administered No information available. Immunizations No information available. Advance Directives There may be information available, but it has not been provided by the sender. Assessments There may be information available, but it has not been provided by the sender. Review of Systems There may be information available, but it has not been provided by the sender. Family History There may be information available, but it has not been provided by the sender. History of Past Illness There may be information available, but it has not been provided by the sender. History of Present Illness There may be information available, but it has not been provided by the sender.
== END ==
PROVIDERS: Family Provider Family Medicine; PCP Family Medicine; Referring Provider Family Medicine; Visit Provider Family Medicine
DX: R30.0 Dysuria (principal)
CPT/HCPCS: 87086; 87088

== ENCOUNTER → 2018-06-09 10:41 | Outpatient (CLI) | payer OTHER, SELFPAY ==
--- NOTE | 2018-06-09 10:41 | NM_ITS ---
CLINICAL: 47-year-old female with reported history of low back pain. WHOLE BODY 99m Tc MDP RADIONUCLIDE BONE SCINTIGRAPHY COMPARISON: MRI of the lumbar spine report 07/24/2016 FINDINGS: Following the intravenous administration of 25.5 mCi of 99m Tc MDP, whole body bone images reveal: 1. Increased radiopharmaceutical concentration is identified in the mid cervical spine posteriorly on the left, the acromioclavicular compartments of both shoulders, sternoclavicular compartment of the left shoulder, ninth-10th thoracic vertebra posteriorly on the right, bilateral knee and ankle articulations. 2. The remaining skeletal structures are scintigraphically unremarkable with the bilateral renal images and urinary bladder activity identified. The right kidney demonstrates a prominent collecting system. An asymmetric increase in tracer concentration appears evident in the right lacrimal bone most consistent with periostitis. NM/Bone Scan Whole Body IMPRESSION: 1. The increase in radiopharmaceutical concentration identified in the cervical and thoracic spine, bilateral shoulders, right and left knees, both ankle articulations is commensurate with degenerative arthritis. 2. There is no definitive scintigraphic evidence of trauma-fracture in the region of the lumbar spine. Electronically Signed: Carlo Crews DO at 23:28 EDT Tel , Service support ,
== END ==
PROVIDERS: Family Provider Family Medicine; PCP Family Medicine; Referring Provider Nurse Practitioner; Visit Provider Nurse Practitioner
DX: D18.09 Hemangioma of other sites (principal)
CPT/HCPCS: 78306

== ENCOUNTER → 2018-06-24 14:58 | Outpatient (CLI) | payer OTHER, SELFPAY ==
[2018-06-24 16:30] LABS: Absolute Lymphocyte Count 2.97 X10^3/ul (0.83-4.51); Basophil# 0.04 X10^3/uL; Basophil% 0.6 % (0-1); Eosinophil# 0.29 X10^3/uL; Eosinophils% 4.2 % (0-5); Hematocrit 41.2 % (37-47); Hemoglobin 13.6 g/dl (12.0-15.0); Lymphocyte # 2.97 X10^3/ul (4.0); Lymphocyte % 43.1 % (19-41); Mean Corpuscular Hgb 30.6 pg (27.0-32.0); Mean Corpuscular Volume 92.6 fL (81-99); Mean Platelet Vol. 11.1 fl (6.2-12.0); Monocyte# 0.58 X10^3/uL; Monocyte% 8.4 % (0-10); Neutrophil # 3.01 X10^3/uL (2.7-7.7); Neutrophil % 43.7 % (47-70); Platelet Count 209 K/mm3 (150-450); RBC Distribution Width CV 12.6 % (11.6-14.6); RBC Distribution Width SD 42.7 fl (35.1-43.9); Red Blood Count 4.45 M/mm3 (4.2-5.4); White Blood Count 6.9 K/mm3 (4.4-11.0)
[2018-06-24 16:49] LABS: POSITIVE COUNT NO; POSITIVE DIFFERENTIAL NO; POSITIVE MORPHOLOGY NO
[2018-06-24 16:53] LABS: CRP < 2.90 mg/L (0.0-3.0)
[2018-06-24 17:02] LABS: Erythrocyte Sedimentation Rate 13 mm/hr (0-20)
[2018-06-27 13:05] LABS: PROEL- A/G Ratio 1.2 (0.7-1.7); PROEL- Albumin 3.8 g/dL (2.9-4.4); PROEL- Alpha-1 Globulin 0.2 g/dL (0.0-0.4); PROEL- Alpha-2 Globulin 0.7 g/dL (0.4-1.0); PROEL- Gamma Globulin 1.2 g/dL (0.4-1.8); PROEL- Globulin, Total 3.1 g/dL (2.2-3.9); PROEL- TOTAL PROTEIN 6.9 g/dL (6.0-8.5)
== END ==
PROVIDERS: Family Provider Family Medicine; PCP Family Medicine; Referring Provider Orthopaedic Surgery; Visit Provider Orthopaedic Surgery
DX: D18.09 Hemangioma of other sites (principal)
CPT/HCPCS: 36415; 84165; 85025; 85652; 86140

== ENCOUNTER → 2018-07-20 | Outpatient (CLI) | payer OTHER, SELFPAY ==
[2018-07-20 10:28] LABS: Rheumatoid Factor < 10.0 IU/mL (<15)
[2018-07-22 12:50] LABS: ANTINUCLEAR ANTIBODIES DIRECT Negative (Negative)
== END | disposition home or self-care (01) ==
LOC: MFPLAB 09:39
PROVIDERS: Family Provider Family Medicine; PCP Family Medicine; Referring Provider Family Medicine; Visit Provider Family Medicine
DX: M19.90 Unspecified osteoarthritis, unspecified site (principal)
CPT/HCPCS: 36415; 86038; 86431

== ENCOUNTER → 2018-09-13 | Outpatient (CLI) | payer OTHER, SELFPAY ==
--- NOTE | 2018-09-13 13:17 | CT_ITS ---
STUDY: CT LUMBAR SPINE WITHOUT CONTRAST REASON FOR EXAM: Female, 47 years old. Back pain with history of prior lumbar spine surgery RADIATION DOSAGE (If Supplied By Facility): CTDIvol = ( 25.28 ) mGy, DLP = ( 861.00 ) mGycm TECHNIQUE: The patient was scanned in a multi detector CT scanner. High resolution transaxial imaging was performed. Images were obtained from lower thoracic spine to mid sacrum. Sagittal and coronal images were reconstructed. Individualized dose optimization techniques were used for this CT. COMPARISON: Abdomen and pelvis CT of 02/06/2015, MRI of 07/24/2016 FINDINGS: Normal lumbar lordosis. There is no substantial scoliosis. There are stable bone islands identified of L2 and L3 vertebral bodies as well as the sacrum. Patchy sclerosis of the right posterior ilium is overall similar when compared to prior abdomen/pelvis CT. No compression fracture. L1-2: Normal endplates. Normal disc height and morphology. Normal bilateral facet joints. Normal central canal and bilateral lateral recesses. Normal bilateral intervertebral neural foramina. L2-3: Normal endplates. Normal disc height and morphology. Normal bilateral facet joints. Normal central canal and bilateral lateral recesses. Normal bilateral intervertebral neural foramina. L3-4: Normal endplates. Normal disc height and morphology. Normal bilateral facet joints. Normal central canal and bilateral lateral recesses. Normal bilateral intervertebral neural foramina. L4-5: Normal endplates. Normal disc height and morphology. Normal bilateral facet joints. Normal central canal and bilateral lateral recesses. Normal bilateral intervertebral neural foramina. L5-S1: Mild anterior spondylosis with disc space narrowing and vacuum disc phenomenon, mildly worse when compared to prior MRI. Left L5 hemilaminotomy noted (image 72). There is foraminal narrowing of the left more than right side. Normal visualized paraspinous soft tissue structures. CT/Spine Lumbar without Contrast IMPRESSION: 1. Interval left L5 hemilaminotomy. Progressive degenerative disc narrowing at L5-S1 with left more than right foraminal stenosis. Electronically Signed: Anthony Heredia MD at 16:38 EDT , Service support ,
--- NOTE | 2018-09-13 13:18 | CT_ITS ---
STUDY: CT THORACIC SPINE WITHOUT CONTRAST REASON FOR EXAM: Female, 47 years old. Back pain RADIATION DOSAGE (If Supplied By Facility): CTDIvol = ( 22.89 ) mGy, DLP = ( 790.90 ) mGycm TECHNIQUE: The patient was scanned in a multi detector CT scanner. High resolution imaging was performed. Images were obtained from lower cervical spine to upper lumbar spine. Sagittal and coronal images were reconstructed. Individualized dose optimization techniques were used for this CT. COMPARISON: Abdomen and pelvis CT of 02/06/2015 FINDINGS: Normal visualized cervical spine. Normal kyphosis of the thoracic spine. There is no substantial scoliosis. There is multilevel endplate spondylosis of the thoracic spine. There is disc space narrowing in the mid lumbar levels. No compression fracture. No subluxation. No compromise of the thoracic spinal canal. Sclerotic lesion of T11 (axial image 98) is stable when compared to prior abdomen/pelvis CT. The soft tissue structures are unremarkable. CT/Spine Thoracic without Contras IMPRESSION: 1. Degenerative disc disease and spondylosis of the mid thoracic spine. No compression fracture. 2. Stable (since 2014) probable bone island in T11. Electronically Signed: Anthony Heredia MD at 16:35 EDT , Service support ,
== END | disposition home or self-care (01) ==
LOC: CT 13:16
PROVIDERS: Family Provider Family Medicine; PCP Family Medicine; Referring Provider Family Medicine; Visit Provider Family Medicine
DX: Z98.890 Other specified postprocedural states (principal)
CPT/HCPCS: 72128; 72131

== ENCOUNTER → 2018-11-09 | Outpatient (CLI) | payer OTHER, SELFPAY ==
--- NOTE | 2018-11-09 10:32 | RAD_ITS ---
STUDY: X-RAY - PELVIS REASON FOR EXAM: Female, 48 years old. Pain TECHNIQUE: One view of the pelvis was obtained. COMPARISON: None. FINDINGS: There is a non-specific bowel gas pattern. Normal visualized soft tissue structures. Normal bilateral iliac wings, sacroiliac joints and visualized sacrum. Normal visualized bilateral superior and inferior pubic rami. Normal pubic symphysis. Normal ischial tuberosities. Normal visualized right femoral head. Normal right acetabulum. Normal right hip joint. Normal visualized left femoral head. Normal left acetabulum. Normal left hip joint. RAD/Pelvis 1 or 2 Views IMPRESSION: No acute findings, no significant arthrosis Electronically Signed: Luiz Mercado MD at 10:48 EDT , Service support ,
[2018-11-09 12:46] LABS: Absolute Lymphocyte Count 1.78 X10^3/uL (0.83-4.51); Absolute Neutrophil Count 2.9 X10^3/uL (2.0-7.7); Basophil# 0.06 X10^3/uL; Basophil% 1.1 % (0-1); Eosinophil# 0.26 X10^3/uL; Eosinophils% 4.8 % (0-5); Hematocrit 43.4 % (37-47); Hemoglobin 14.6 g/dL (12.0-15.0); Lymphocyte # 1.78 X10^3/ul (4.0); Lymphocyte % 32.5 % (19-41); Mean Corp Hgb Conc 33.6 g/dL (32-36); Mean Corpuscular Hgb 31.2 pg (27.0-32.0); Mean Corpuscular Volume 92.7 fL (81-99); Mean Platelet Vol. 11.2 fl (6.2-12.0); Monocyte# 0.45 X10^3/uL; Monocyte% 8.2 % (0-10); NRBC Flagged by Analyzer 0 % (0-5); Neutrophil # 2.92 X10^3/uL (2.7-7.7); Neutrophil % 53.4 % (47-70); Platelet Count 246 K/mm3 (150-450); RBC Distribution Width CV 12.2 % (11.6-14.6); RBC Distribution Width SD 41.5 fl (35.1-43.9); Red Blood Count 4.68 M/mm3 (4.2-5.4); White Blood Count 5.5 K/mm3 (4.4-11.0)
[2018-11-09 12:49] LABS: Erythrocyte Sedimentation Rate 20 mm/hr (0-30)
[2018-11-09 13:06] LABS: ALB/GLOB Ratio 0.9 RATIO (0.9-2.4); AST(SGOT) 18 U/L (15-37); Alanine Aminotransfer ALT/SGPT 37 U/L (13-56); Albumin, Serum 3.7 g/dL (3.2-5.0); Alkaline Phosphatase 93 U/L (45-117); Anion Gap 7 (5-15); BUN 14 mg/dL (7-18); BUN/Creat Ratio 20.6 RATIO (10-20); CRP < 2.90 mg/L (0.0-3.0); Calcium,Total 9.3 mg/dL (8.5-10.1); Chloride 107 mmol/L (98-107); Creatinine, Serum 0.68 mg/dL (0.55-1.02); EST Glomerular Filtration Rate 97 mL/min (>60); Est Glom Filt Rate - Afr Amer 118 mL/min (>60); Globulin 4.1 g/dL (2.2-4.2); Glucose 91 mg/dL (74-106); Protein, Total 7.8 g/dL (6.4-8.2); Rheumatoid Factor < 10.0 IU/mL (<15); Sodium Level 141 mmol/L (136-145)
[2018-11-09 14:03] LABS: Hepatitis B Surface Antibody Non-Reactive; Hepatitis B Surface Antigen Non-Reactive (Nonreactive); Hepatitis C Antibody Non-Reactive (Nonreactive)
[2018-11-14 15:47] LABS: CCP IgG Antibodies 4 units (0-19); HLA B27 Negative (.); Hepatitis B Core AB IgM Negative (Negative)
== END | disposition home or self-care (01) ==
LOC: MTLAB 10:29
PROVIDERS: Family Provider Family Medicine; PCP Family Medicine; Referring Provider Internal Medicine Rheumatology; Visit Provider Internal Medicine Rheumatology
DX: M06.4 Inflammatory polyarthropathy (principal); M51.37 Other intervertebral disc degeneration, lumbosacral region; F41.9 Anxiety disorder, unspecified
CPT/HCPCS: 36415; 72170; 80053; 81374; 85025; 85652; 86140; 86200; 86431; 86705; 86706; 86803; 87340

== ENCOUNTER → 2020-01-19 10:57 | Outpatient (CLI) | payer OTHER, SELFPAY ==
[2020-01-19 12:40] LABS: HIV - WCH Non-Reactive (Nonreactive); Hepatitis B Surface Antigen Non-Reactive (Nonreactive); Hepatitis C Antibody Non-Reactive (Nonreactive)
[2020-01-20 13:04] LABS: HSV 2 IgG < 0.91 index (0.00-0.90)
[2020-01-25 02:10] LABS: Rapid Plasmin Reagin (RPR) NONREACTIVE (NONREACTIVE)
== END ==
PROVIDERS: PCP Family Medicine; Visit Provider Specialist
DX: Z11.3 Encounter for screening for infections with a predominantly sexual mode of transmission (principal)
CPT/HCPCS: 36415; 86592; 86695; 86696; 86703; 86803; 87340

== ENCOUNTER → 2020-02-07 13:06 | Outpatient (CLI) | payer OTHER, SELFPAY | PROVIDERS: PCP Family Medicine; Referring Provider Nurse Practitioner Family; Visit Provider Nurse Practitioner Family | DX: R00.2 Palpitations (principal) | CPT/HCPCS: 93225; 93226 ==

== ENCOUNTER → 2020-02-07 13:36 | Outpatient (CLI) | payer OTHER, SELFPAY ==
[2020-02-07 17:48] LABS: Progesterone Level 0.33 ng/mL (See Comment); Vitamin D,25 Hydroxy 22.7 ng/mL
[2020-02-07 20:16] LABS: Estradiol 21.9 pg/mL; Follicle Stimulating Hormone 78.9 mIU/mL; Free T3 2.6 pg/mL (2.18-3.98); Luteinizing Hormone 31.4 mIU/mL; T4 Free Direct 0.88 ng/dL (0.76-1.46); Thyroid Stim Hormone (TSH) 1.83 uIU/mL (0.358-3.74)
== END ==
PROVIDERS: PCP Family Medicine
DX: E55.9 Vitamin D deficiency, unspecified (principal); N95.1 Menopausal and female climacteric states
CPT/HCPCS: 36415; 82306; 82627; 82670; 83001; 83002; 84144; 84403; 84439; 84443; 84481; 82626

== ENCOUNTER 2020-09-25 16:30 | Outpatient (RCR) | payer OTHER, SELFPAY ==
--- NOTE | 2020-06-03 16:59 | HP.PTEVAL_ITS ---
Patient's Visit Information KRUNAL RUBIO is a 49 year old F referred to Physical Therapy by Dr. Ugo Schulte MD with a diagnosis of BACK AND LEG PAIN. Date of Evaluation: 06/03/20 Physical Therapist: Phong Moore, PT, Cert MDT, OCS - Visit Plan Frequency: 2x /Week Duration: 4 Weeks Plan: PT INTEREVTIONS ADILENE EX'S,DLS -ABD/BACK ,POSTURAL EX'S ,LE FLEXBLITY - Subjective This 49 y/o female presents to physical therapy with back and leg pain .Patient had lumbar disectomy 3 years ago. Patient was unable to attend PT due to father passing. Most recently ,noticed increase pain in back and hips with activity and job demands . Patient has been helping daughter . Noticed in back pain stiffness. Patient has PT at [facility]. Patient was referred to pain management Dr Artis. Patient has located lumbar symmtrical to left lateral hip. Aggraveting factors bending repeated ,lifting but on 10# restriction at work. Alleviating factors walking ,on move. Patient does stand on concrete at work. Denies parathesia/tingling. Coughing sneezing -. Bowel/bladder-. No abdnormal night pain. Patient sleeping okay. Patient condition back pain affects QOL and function. SOCAIL: single. VOCATION: [place] - Pain Bilateral Back Pain Intensity (Out of 10): 6 Pain Intensity Range: 10 - Objective POSTURE: mild foward posture. GAIT: reciprocal pattern. PALAPTION: unremarkable. NEURO:denies parathesia/tingling ,reflexes L3-4,L4-5,5-S1. FLEXABLITY: hams min tight. MMT: quads/hams/hip /ankle 4/5. LUMBAR ROM: flexion mod tight,extension mild tight,sie glides min tight - Special Tests L/S Slump test left side: Negative L/S Slump test right side: Negative L/S Left Straight Leg Raise: Negative L/S Right Straight Leg Raise: Negative Lumbar Standing: Flexion - Mechanical Response: No effect Lumbar Standing: Flexion - Symptoms During Testing: Increases Lumbar Standing: Flexion - Symptoms After Testing: Worse Lumbar Standing: Extension - Mechanical Response: No effect Lumbar Standing: Extension - Symptoms During Testing: Increases Lumbar Standing: Extension - Symptoms After Testing: No better Lumbar Standing: Right Side [place] - Symptoms During Testing: No effect Lumbar Standing: Right Side [place] - Symptoms After Testing: No effect Lumbar Standing: Left Side [place] - Mechanical Response: No effect Lumbar Standing: Left Side [place] - Symptoms During Testing: No effect Lumbar Standing: Left Side [place] - Symptoms After Testing: No effect Lumbar Lying: Flexion - Mechanical Response: No effect Lumbar Lying: Flexion - Symptoms During Testing: Increases Lumbar Lying: Flexion - Symptoms After Testing: No worse Lumbar Lying: Extension - Mechanical Response: Increases motion Lumbar Lying: Extension - Symptoms During Testing: Decreases Lumbar Lying: Extension - Symptoms After Testing: Better - Goals Goal 1:: I with HEP Goal Time Frame: 4-6 Weeks Goal 2:: I with posture/body mechanics Goal Time Frame: 4-6 Weeks Goal 3:: Patient to decrease pain lumbar pain left pain to improve function with job demands. Goal Time Frame: 4-6 Weeks Goal 4:: Patient to improve lumbar ROM for function of recovery Goal Time Frame: 4-6 Weeks Goal 5:: Patient to improve back owestry score by 5 points or > to improve QOL. Goal Time Frame: 4-6 Weeks - Rehabilitation Potential Physical Therapy Diagnosis: This patient has back and leg pain possible derrangement above knee with h/o lumbar disectomy with decrease ROM ,weak core ,pain impairs function and thus will benifit from skilled PT Rehabilitation Potential: Good - Anticipated Interventions Patient/Client Instruction: Educate patient on: Condition, Plan of Care For the Purpose of:: To decrease pain, To increase ROM, To improve muscle performance and motor function, To improve ability to perform ADL's, To increase tolerance to activity/condition/position, To improve performance and independence with ADL's, To improve ability of physical actions for home/community/work/leisure, To improve health of tissue, To decrease soft tissue restriction, To increase flexibility/ROM, To reduce risk of recurrence, To improve ability to perform tasks related to life management Therapeutic Exercise to Include: Strength training, Body mechanics, Postural training, Flexibilty training, Dynamic Lumbar Stabilization For the Purpose of:: To decrease pain, To increase ROM, To improve muscle performance and motor function, To improve ability to perform ADL's, To improve ability of physical actions for home/community/work/leisure, To improve health of tissue, To decrease soft tissue restriction, To increase flexibility/ROM, To improve ability to perform tasks related to life management Thank you for the opportunity to evaluate your patient. For Medicare and Medicare HMO plans, please review the plan of care and approve it. It will need to be FAXED BACK to us at [phone] for Medicare purposes. For Medicare only, by signing this I certify the plan of care. Please let me know if there are questions or concerns regarding this plan of care. Physician Signature: Date:
--- NOTE | 2020-09-25 16:57 | HP.PTDCSUM_ITS ---
It has been my pleasure to treat KRUNAL RUBIO referred by Dr. Ugo Schulte MD, with the diagnosis of BACK AND LEG PAIN for a total of 17 visit(s). Discharge Date: Please see the following information for a summary of their discharge status. 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 Goal 1:: I with HEP Goal Progress: Goal Met Goal 2:: I with posture/body mechanics Goal Progress: Goal Met Goal 3:: Patient to decrease pain lumbar pain left pain to improve function with job demands. Goal Progress: Goal Met Goal 4:: Patient to improve lumbar ROM for function of recovery Goal Progress: Goal Met Goal 5:: Patient to improve back owestry score by 5 points or > to improve QOL. Plan: D/C TO [facility]QU[facility]Y AT [facility] If there are questions or concerns regarding this patient's physical therapy, please feel free to call me at [phone]. Thank you for the referral of this patient. Sincerely, Phong Moore, PT, Cert MDT, OCS
== END 2020-09-25 19:00 | disposition home or self-care (01) ==
LOC: PT 16:30
PROVIDERS: PCP Family Medicine; Referring Provider Anesthesiology Pain Medicine; Visit Provider Anesthesiology Pain Medicine
DX: M54.9 Dorsalgia, unspecified (principal); M79.606 Pain in leg, unspecified
CPT/HCPCS: 97110; 97113; 97162; 97530

== ENCOUNTER → 2021-01-17 08:55 | Outpatient (CLI) | payer OTHER, SELFPAY ==
[2021-01-17 10:33] LABS: Anion Gap 5 (5-15); BUN 16 mg/dL (7-18); BUN/Creat Ratio 19.7 RATIO (10-20); Calcium,Total 9.6 mg/dL (8.5-10.1); Chloride 109 mmol/L (98-107); Cholesterol 210 mg/dL (200); Creatinine, Serum 0.81 mg/dL (0.55-1.02); EST Glomerular Filtration Rate 79 mL/min (>60); Est Glom Filt Rate - Afr Amer 95 mL/min (>60); Glucose 109 mg/dL (74-106); High Density Lipoprotein 72 mg/dL; Potassium 3.7 mmol/L (3.5-5.1); Sodium Level 140 mmol/L (136-145); Thyroid Stim Hormone (TSH) 2.48 uIU/mL (0.358-3.74); Triglycerides 54 mg/dL; Very Low Density Lipoprotein 11 mg/dL (5-40)
== END ==
PROVIDERS: PCP Family Medicine; Referring Provider Family Medicine; Visit Provider Family Medicine
DX: Z00.00 Encounter for general adult medical examination without abnormal findings (principal)
CPT/HCPCS: 36415; 80048; 80061; 82306; 84443

== ENCOUNTER → 2022-01-13 | Outpatient (CLI) | payer OTHER, SELFPAY ==
--- NOTE | 2022-01-13 16:41 | CT_ITS ---
EXAM: CT PELVIS WITH INTRAVENOUS CONTRAST CLINICAL INDICATION: rectal mass, FELT POSSIBLE CYST. DELAYS TECHNIQUE: Helically acquired images were obtained of the pelvis with intravenous contrast. This CT exam was performed using one or more of the following dose reduction techniques: automated exposure control, adjustment of the mA and/or kV according to patient size, and/or use of iterative reconstruction technique. This report was created using [employer] report generation technology. CONTRAST: Oral and amp; IV Gastrografin and amp; 100mL Isovue-370 COMPARISON: 02/06/2015 FINDINGS: KIDNEYS AND URETERS: There is right-sided hydronephrosis with marked dilatation of the right renal pelvis. Ureters are normal in caliber which may represent a UPJ obstruction. BOWEL: Unremarkable as visualized. No bowel distention. No focal inflammatory change. APPENDIX: No evidence of acute appendicitis. INTRAPERITONEAL SPACE: Unremarkable. No ascites or other fluid collection. No free air. BLADDER: Unremarkable. REPRODUCTIVE: Unremarkable as visualized. No mass. BONES/JOINTS: Unremarkable. No suspicious lytic or blastic abnormality. SOFT TISSUES: Unremarkable. No pelvic wall hernia. LYMPH NODES: Unremarkable. No enlarged lymph nodes. CT/Pelvis WITH IV Contrast IMPRESSION: 1. Right-sided hydronephrosis with marked prominence of the right renal pelvis. The ureter is normal in caliber which may represent a UPJ obstruction. Delayed images show delayed excretion of contrast on the right. If indicated further evaluation with retrograde ureterogram may be beneficial. 2. No other acute abnormalities are identified. There is no evidence of a rectal mass. If indicated further evaluation with colonoscopy may be beneficial. Electronically Signed: Burton Reeves MD at 23:23 EDT ,
== END | disposition home or self-care (01) ==
LOC: CT 16:38
PROVIDERS: PCP Family Medicine; Visit Provider Family Medicine
DX: N28.89 Other specified disorders of kidney and ureter (principal)
CPT/HCPCS: 72193; Q9967

== ENCOUNTER 2022-01-14 21:02 | Emergency (ER) | payer OTHER, SELFPAY ==
[2022-01-14 21:03] VITALS: BP 146/94; PULSE 89; RESP 18; TEMP 36.4; O2SAT 99; BMI 30.8
[2022-01-14 21:23] LABS: Mucous, Urine 0 SEEN /hpf (<or=2+)
[2022-01-14 21:25] LABS: Glucose, Dipstick Normal (Normal); Ketone-Dipstick Negative (Negative); Leukocyte Esterase-Dipstick 25 /ul (Negative); Nitrite-Dipstick Negative (Negative); Occult Blood-Urine 10 /ul (Negative); Protein-Dipstick 15 mg/dl (Negative); Urine Bilirubin Dipstick Negative (Negative); Urine Urobilinogen Normal (Normal)
[2022-01-14 21:26] LABS: Color, Urine Yellow (Yellow); Urine Clarity Clear (Clear)
[2022-01-14 21:33] LABS: Bacteria RARE /hpf (None Seen); Red Blood Cells-Urine 0-5 SEEN /hpf (0-5); Squamous Epithelial Cells - UA 0-5 SEEN /hpf (5-10); White Blood Cells 0-5 SEEN /hpf (0-5)
[2022-01-14 22:48] LABS: Absolute Neutrophil Count 9.8 X10^3/uL (2.0-7.7); Basophil# 0.05 X10^3/uL; Basophil% 0.4 % (0-1); Eosinophil# 0.03 X10^3/uL; Eosinophils% 0.3 % (0-5); Hematocrit 43.7 % (37-47); Hemoglobin 14.7 g/dL (12.0-15.0); Lymphocyte % 9.8 % (19-41); Mean Corp Hgb Conc 33.6 g/dL (32-36); Mean Corpuscular Hgb 31.1 pg (27.0-32.0); Mean Corpuscular Volume 92.6 fL (81-99); Mean Platelet Vol. 10.5 fl (6.2-12.0); Monocyte# 0.17 X10^3/uL; Monocyte% 1.5 % (0-10); NRBC Flagged by Analyzer 0 % (0-5); Neutrophil % 87.7 % (47-70); Platelet Count 264 K/mm3 (150-450); RBC Distribution Width CV 13.4 % (11.6-14.6); RBC Distribution Width SD 46.1 fl (35.1-43.9); Red Blood Count 4.72 M/mm3 (4.2-5.4); White Blood Count 11.2 K/mm3 (4.4-11.0)
[2022-01-14 22:55] LABS: Internal QC Validated? YES +Cl - CLEAR BKGD; Pregnancy, Serum, hCG Quali. NEGATIVE Negative
[2022-01-14 22:59] LABS: Anion Gap 6 (5-15); BUN 20 mg/dL (7-18); BUN/Creat Ratio 18.9 RATIO (10-20); Calcium,Total 9.5 mg/dL (8.5-10.1); Chloride 108 mmol/L (98-107); Creatinine, Serum 1.06 mg/dL (0.55-1.02); EST Glomerular Filtration Rate 58 mL/min (>60); Est Glom Filt Rate - Afr Amer 70 mL/min (>60); Estimated Creatinine Clearance 57.46 ml/min; Glucose 152 mg/dL (74-106); Potassium 4.3 mmol/L (3.5-5.1); Sodium Level 139 mmol/L (136-145)
--- NOTE | 2022-01-14 23:10 | EDS_ITS ---
HPI HPI - Female History of Present Illness Chief Complaint: Flank Pain Narrative Narrative: Patient presents with bilateral flank pain that she has had for weeks to months. She also has problems with low back pain. She relates history that she was found to have a cyst on her rectum. She had CT imaging of the pelvis that was done yesterday. She followed up with Dr. Olsen today, who told her that she reviewed the CAT scan and was noted to have hydronephrosis on the right. She states that her pain is bilateral, sharp and stabbing, with no exacerbating or alleviating factors. She denies any dysuria or hematuria. No fevers or chills. She states that her primary care physician's office called her and told her if she was feeling badly that she should come to the emergency department. She does have follow-up scheduled with urology. She became worried so she presents to the emergency department for her bilateral flank pain. PFSH PFS Home Medications buspirone 5 mg tablet 10 mg PO DAILY 01/14/22 [History Last Taken Unknown] Allergy/AdvReac Type Severity Reaction Status Date / Time oxycodone HCl [From Percocet] AdvReac Nausea Verified 01/14/22 21:07 Surgical History History of back surgery Social History Smoking Status: Current every day smoker alcohol intake: current details: occasional substance use type: does not use ROS ROS ED ROS Narrative Constitutional: No fever, no chills. HEENT: No sore throat. No neck pain. No loss of vision. No rhinorrhea. Cardiovascular: No chest pain. No palpitations. No pedal edema. Respiratory: No cough, no shortness of breath. Abdominal: No abdominal pain. No nausea. No vomiting. Genitourinary: No dysuria. No hematuria. Bilateral flank pain, sharp and stabbing. Musculoskeletal: No myalgias. No arthralgias. Neurologic: No headaches. No dizziness. No lightheadedness. Skin: No rash. No change in color. Psychiatric: No depression. No anxiety. EXAM Physical Exam Narrative Exam Narrative: Afebrile. Vital signs noted. Nontoxic-appearing. HEENT: Normocephalic. Atraumatic. PERRL, EOMI. Neck soft and supple. No point tenderness or step off. Cardiovascular: Regular rate and rhythm. No murmurs, rubs, or gallops appre ciated. Respiratory: No tachypnea. Lungs clear to auscultation bilaterally. Gastrointestinal: Abdomen soft, nontender, with normoactive bowel sounds. No rebound or guarding. No CVA tenderness to percussion bilaterally. Neurological: Awake. Alert. Nonfocal, nonlateralizing. Skin: No rash. Normal color. No pallor. Musculoskeletal: No pedal edema. Full range of motion extremities. Const Vital Signs: 01/14/22 21:03 Temperature 97.6 F L Temperature Source Temporal Pulse Rate 89 Respiratory Rate 18 Blood Pressure 146/94 H Blood Pressure Mean 111 Pulse Ox 99 Oxygen Delivery Method Room Air MDM MDM MDM Narrative Medical decision making narrative: RN started protocol. She has slightly elevated white count of 11.2 which I think is nonspecific, normal hemoglobin of 14.7, hematocrit 43.7. Chloride slightly elevated at 108 with a BUN of 20 and a creatinine of 1.06. Urinalysis is negative for infection with 0-5 WBCs and 0-5 RBCs. Serum test is negative. I reviewed her CT scan which was a CT of the pelvis. They did note right hydronephrosis but no hydroureter noted. They are thinking a UPJ obstruction. Given that she is still making urine, and she only has a slightly elevated creatinine of 1.06, I feel she can be discharged to follow-up with urology. They are supposed to call her tomorrow. I do not feel that CT imaging needs repeated. She is also following up for the reported cyst on her rectum with colonoscopy next Wednesday. Patient was reassured. Return instructions to the emergency department were reviewed. Disposition is discharged home in stable condition. Lab Data Attestation: I reviewed the patient's lab results. Labs: Laboratory Results - last 24 hr 01/14/22 01/14/22 01/14/22 21:15 22:40 22:40 WBC 11.2 H RBC 4.72 Hgb 14.7 Hct 43.7 MCV 92.6 MCH 31.1 MCHC 33.6 RDW Std Deviation 46.1 H RDW Coeff of Skye 13.4 Plt Count 264 MPV 10.5 Immature Gran % (Auto) 0.300 Neut % (Auto) 87.7 H Lymph % (Auto) 9.8 L [place] % (Auto) 1.5 Eos % (Auto) 0.3 Baso % (Auto) 0.4 Absolute Neuts (auto) 9.8 H Absolute Lymphs (auto) 1.10 Nucleated RBC % 0 Sodium 139 Potassium 4.3 Chloride 108 H Carbon Dioxide 25.0 Anion Gap 6 BUN 20 H Creatinine 1.06 H Estim Creat Clear Calc 57.46 Est GFR (MDRD) Af Amer 70 Est GFR (MDRD) Non-Af 58 L BUN/Creatinine Ratio 18.9 Glucose 152 H Calcium 9.5 Serum , Qual Urine Color Yellow Urine Clarity Clear Urine pH 6.0 Ur Specific Triplett 1.020 Urine Protein 15 H Urine Glucose (UA) Normal Urine Ketones Negative Urine Occult Blood 10 H Urine Nitrite Negative Urine Bilirubin Negative Urine Urobilinogen Normal Ur Leukocyte Esterase 25 H Urine RBC 0-5 SEEN Urine WBC 0-5 SEEN Ur Squamous Epith Cells 0-5 SEEN Urine Bacteria RARE Urine Mucus 0 SEEN 01/14/22 22:40 WBC RBC Hgb Hct MCV MCH MCHC RDW Std Deviation RDW Coeff of Skye Plt Count MPV Immature Gran % (Auto) Neut % (Auto) Lymph % (Auto) [place] % (Auto) Eos % (Auto) Baso % (Auto) Absolute Neuts (auto) Absolute Lymphs (auto) Nucleated RBC % Sodium Potassium Chloride Carbon Dioxide Anion Gap BUN Creatinine Estim Creat Clear Calc Est GFR (MDRD) Af Amer Est GFR (MDRD) Non-Af BUN/Creatinine Ratio Glucose Calcium Serum , Qual NEGATIVE Urine Color Urine Clarity Urine pH Ur Specific Triplett Urine Protein Urine Glucose (UA) Urine Ketones Urine Occult Blood Urine Nitrite Urine Bilirubin Urine Urobilinogen Ur Leukocyte Esterase Urine RBC Urine WBC Ur Squamous Epith Cells Urine Bacteria Urine Mucus Discharge Plan Triage Chief Complaint: Flank Pain ED Provider: Stepan Powell Dx/Rx/DC Orders Clinical Impression: Bilateral flank pain, Hydronephrosis, right Instructions: Understanding Hydronephrosis, ED Flank Pain, Uncertain Cause Prescriptions: No Action buspirone 5 mg tablet 10 mg PO DAILY Primary Care Provider: Kanu Jackson Referrals: Diane Florence MD [Med Staff - Active Staff] - As soon as possible Kanu Jackson MD [Primary Care Provider] - Disposition Disposition: Home, Self Care
== END 2022-01-14 23:37 | disposition home or self-care (01) ==
LOC: ED 23:21
PROVIDERS: Emergency Provider Emergency Medicine; PCP Family Medicine; Visit Provider Emergency Medicine
DX: N13.30 Unspecified hydronephrosis (principal); R10.9 Unspecified abdominal pain; F17.200 Nicotine dependence, unspecified, uncomplicated
CPT/HCPCS: 80048; 81001; 84703; 85025; 87086; 99282; A4216

== ENCOUNTER 2022-01-19 07:46 | Day surgery (SDC) | payer OTHER, SELFPAY ==
[2022-01-19 08:05] VITALS: BP 125/72; PULSE 100; RESP 16; TEMP 36.9; O2SAT 100; BMI 30.2
[2022-01-19] MEDS: Lactated Ringers 1,000 ML 15 ML IV (08:18)
--- NOTE | 2022-01-19 09:25 | HP.PCM_ITS ---
History and Physical Date of Admission: 01/19/22 Date of Service:? 01/14/22 MR#: [id number] Acct: [id number] Name:KRUNAL ZABALA Rep #: [id number] : 1970 ? ? Provider: Dr. Melissa Olsen MD Age/Sex:? 51/F ? ? Location: [facility] Status: Signed Intake Vital Signs ? 01/14/2213:39 Height 5 ft 7 in Weight: 192 lb BMI 30.0 BP 109/72 Blood Pressure Location Rt brachial Position Sitting Respiration 16 Pulse 80 Pulse Source Monitor Temp 97.6 F L Temp Source Temporal Pulse Oximetry (%) 95 Oxygen Delivery Method room air Intake Visit Reasons:?RECTAL MASS; CSCOPE Chief Complaint: Rectal Mass; Cscope Test Rider Required: No Is patient in pain?: No Allergies oxycodone HCl [From Percocet] Adverse Reaction (Verified 01/14/22 13:40) Nausea Medications buspirone 5 mg tablet 10 mg PO DAILY 01/14/22 [History Confirmed 01/14/22] PFSH Surgical History?(Updated 01/14/22 @ 13:38 by Parriswednesday) History of back surgery Social History?(Updated 01/14/22 @ 13:39 by Wednesday) Smoking Status:? Current every day smoker alcohol intake:? current details:? occasional substance use type:? does not use HPI HPI HPI: 51-year-old female presents due to possible rectal mass for colonoscopy.? Patient's father was diagnosed with rectal cancer at age 62 and it had metastasized at that time to the liver.? Patient never had a previous colonoscopy.? Patient states she noticed some burning at the rectal area and did feel a lump when she was in the shower.? Patient states she had recently changed to a keto diet and did have some diarrhea initially with that.? Patient states otherwise she has bowel movements daily denies any blood.? Patient denies any abdominal pain, nausea, vomiting, reflux.? Patient did have a CT of the pelvis which shows approximately dilated right renal pelvis and ureter.? No evidence of rectal mass. ROS General General: No weight change, appetite, fatigue, colon cancer, breast cancer or weakness HEENT HEENT: No difficulty swallowing, eye injury, eye surgery, swollen glands or hoarseness Endo Endocrine: No thyroid disease, diabetes mellitus, thyroid cancer, Hair loss, heat intolerance or cold intolerance Skin Skin: No rash or changing moles Musc Musculoskeletal: Yes back problems and arthritis; No rheumatoid arthritis, gout or joint pain Cardio Cardiovascular: No murmur, pacemaker, heart disease, atrial fibrillation, high blood pressure, heart attack, heart stent, palpitations, shortness of breat with exertion or chest pain Psych Psychiatric: Yes anxiety; No depression or hearing voices Resp Respiratory: No shortness of breath, No sleep apnea, No cough, No COPD, No asthma, No emphysema and No wheezing Gastro Gastrointestinal: No abdominal pain, No nausea or vomiting, No diarrhea, No constipation, No blood in stool, No acid reflux, No hemorrhoids, No ulcers, No gallbladder problem and No black,tarry stools Ariel Hematologic: No blood thinners, No blood disorders, No bleeding, No anemia and No blood clots Neuro Neurologic: No system reviewed and no additional complaints, except as documented, No as per HPI, No abnormal gait, No abnormal hearing, No abnormal movements, No abnormal speech, No behavioral changes, No burning sensations, No confusion, No convulsions, No disequilibrium, No dizziness, No localized weakness, No frequent falls, No headache(s), No lack of coordination, No loss of vision, No memory loss, Yes numbness (back/legs), No other visual disturbances, No radicular pain, No restless legs, No sensory deficit, No syncope, Yes tingling (back/legs), No tremor(s), No weakness and No other Exam Const General: cooperative, healthy appearing and no acute distress Nutritional Appearance: well nourished [facility] Head: normal to inspection Resp Effort & Inspection: normal respiratory effort Auscultation: clear to auscultation bilaterally Cardio Rate: regular rate Rhythm: regular rhythm GI Inspection: non-distended Palpation: soft, no guarding, no hernias and nontender Other: LANG: no mass, no gross blood, internal hemorrhoids small about 6:00, normal sphincter tone Skin General: no rashes or lesions noted Neuro General: patient alert, patient awake and patient oriented x3 Extrem General: no clubbing, cyanosis or edema Psych Affect: normal affect Assessment and Plan Assessment and Plan (1) Hemorrhoids, internal: ?Status:?Acute (2) FH: colon cancer in first degree relative <60 years old: ?Status:?Acute ?Comment: rectal- father- metastatic at 62 (3) Hydroureter on right: ?Status:?Acute ?Comment: on CT--asymptomatic ? ? ? Orders: Referrals Urology ? N13.4 - Hydroureter ? Plan On exam today did not feel any mass or cyst in the rectal area.? Patient does have evidence of internal hemorrhoids small at this time.? Likely were aggravated due to the diarrhea she previously had-as patient states she had a lump at that time which resolved prior to seeing her PCP.? Did personally reviewed CT of the pelvis as well as reviewed with patient. Will refer to Dr. Florence due to the CT showing the right renal pelvis and proximal hydroureter.? Patient is asymptomatic. I have discussed the above with the patient. I have offered the patient colonoscopy for evaluation. I have explained the risks/benefits of the procedure and described the procedure.? I have discussed the risks with the patient, including but not limited to:? infection, bleeding, perforation of the GI tract requiring emergency surgery, inability to complete the procedure, injury to any internal organs, complications of anesthesia, etc. - the patient understands and agrees to proceed. I have answered all the patient's questions to the patient's satisfaction and the patient has no further questions. The patient has been given instructions for the colon cleansing preparation.? 1 day of clears, MiraLAX Dulcolax split prep. Melissa Olsen M.D. Pager: [phone] [facility] [address] [place] [address], [address] [place] [address] Office: [phone] Coding Level of Care Code Off vis,new,level 4 Diagnoses Hemorrhoids, internal? K64.8 FH: colon cancer in first degree relative <60 years old? Z80.0 Hydroureter on right? N13.4 01/14/22 1402 <Electronically signed by Melissa Olsen MD> Date Melissa Olsen MD
[2022-01-19 10:10] VITALS: BP 125/72; BP 95/54; PULSE 76; RESP 16; TEMP 36.4; O2SAT 99
--- NOTE | 2022-01-19 10:10 | OP.COLON_ITS ---
Patient Name: Gia Mar Procedure Date: 01/19/2022 9:36 AM Date of : 1970 Age: 51 Procedure: Colonoscopy Indications: Family history of colon cancer in a first-degree relative Providers: Melissa Olsen MD Referring MD: Kanu Jackson MD Medicines: Monitored Anesthesia Care Patient Profile: This is a 51 year old female. Last Colonoscopy: none. The patient's first colonoscopy is today. Complications: No immediate complications. Procedure: Pre-Anesthesia Assessment: - Prior to the procedure, a History and Physical was performed, and patient medications and allergies were reviewed. The patient's tolerance of previous anesthesia was also reviewed. The risks and benefits of the procedure and the sedation options and risks were discussed with the patient. All questions were answered, and informed consent was obtained. Prior Anticoagulants: The patient has taken no previous anticoagulant or antiplatelet agents. ASA Grade Assessment: Per anesthesia. After reviewing the risks and benefits, the patient was deemed in satisfactory condition to undergo the procedure. After I obtained informed consent, the scope was passed under direct vision. Throughout the procedure, the patient's blood pressure, pulse, and oxygen saturations were monitored continuously. The Colonoscope was introduced through the anus and advanced to the cecum, identified by the appendiceal orifice, ileocecal valve and palpation. The colonoscopy was performed without difficulty. The patient tolerated the procedure well. The quality of the bowel preparation was good. Scope In: 9:45:00 AM Scope Withdrawal Time 0 hours 12 minutes 51 seconds Scope Out: 10:03:53 AM Total Procedure Duration Time 0 hours 18 minutes 53 seconds Findings: Scattered small and medium diverticula were found in the descending colon, splenic flexure and transverse colon. The exam was otherwise without abnormality. Hemorrhoids were found on perianal exam. Non-bleeding internal hemorrhoids were found. The hemorrhoids were Grade I (internal hemorrhoids that do not prolapse). Impression: - Diverticulosis in the descending colon, at the splenic flexure and in the transverse colon. - The examination was otherwise normal. - Hemorrhoids found on perianal exam. - Non-bleeding internal hemorrhoids. - No specimens collected. Recommendation: - Discharge patient to home. - Resume previous diet. - Continue present medications. - Repeat colonoscopy in 5 years for screening purposes. Procedure Code(s): --- Professional --- 89278, PT, Colonoscopy, flexible; diagnostic, including collection of specimen(s) by brushing or washing, when performed (separate procedure) Diagnosis Code(s): --- Professional --- Z80.0, Family history of malignant neoplasm of digestive organs K57.30, Diverticulosis of large intestine without perforation or abscess without bleeding CPT copyright 2017 [employer]. All rights reserved. The codes documented in this report are preliminary and upon technical operations manager review may be revised to meet current compliance requirements. MD Melissa Yoo MD 01/19/2022 10:09:55 AM This report has been signed electronically. Number of Addenda: 0 Note Initiated On: 01/19/2022 9:36 AM
--- NOTE | 2022-01-19 10:11 | OP.CCLET_ITS ---
01/19/2022 Kanu Jackson MD [address] [id number] Re : Colonoscopy procedure for Gia Mar Dear Dr. Jackson This procedure was performed on Wednesday, January 19, 2022. My impressions and recommendations are as follows: Impressions : - Diverticulosis in the descending colon, at the splenic flexure and in the transverse colon. - The examination was otherwise normal. - Hemorrhoids found on perianal exam. - Non-bleeding internal hemorrhoids. - No specimens collected. Recommendations : - Discharge patient to home. - Resume previous diet. - Continue present medications. - Repeat colonoscopy in 5 years for screening purposes. My findings are described in the full procedure note, which is enclosed. If I can be of further assistance, please feel free to contact me at Doctor phone number(s): , Work: . Sincerely, MD Melissa Yoo MD 01/19/2022 10:09:55 AM This report has been signed electronically.
[2022-01-19 10:15] VITALS: BP 125/72; BP 94/58; PULSE 67; RESP 16; O2SAT 98
[2022-01-19 10:20] VITALS: BP 100/68; BP 125/72; PULSE 76; RESP 16; O2SAT 98
[2022-01-19 10:25] VITALS: BP 115/62; BP 125/72; PULSE 66; RESP 16; TEMP 35.9; O2SAT 99
[2022-01-19 10:55] VITALS: BP 125/72
== END 2022-01-19 10:55 | disposition home or self-care (01) ==
LOC: EN 07:48 → AC 07:48
PROVIDERS: PCP Family Medicine; Referring Provider Family Medicine; Visit Provider Surgery
PROC: 0DJD8ZZ Inspection of Lower Intestinal Tract, Via Natural or Artificial Opening Endoscopic (ICD-10-PCS; CPT 45378; principal; 2022-01-19 08:55)
DX: Z12.11 Encounter for screening for malignant neoplasm of colon (principal); K57.30 Diverticulosis of large intestine without perforation or abscess without bleeding; K64.0 First degree hemorrhoids; F17.200 Nicotine dependence, unspecified, uncomplicated; F41.9 Anxiety disorder, unspecified; Z79.899 Other long term (current) drug therapy; Z80.0 Family history of malignant neoplasm of digestive organs
CPT/HCPCS: 45378; J7120; J2405

== ENCOUNTER 2022-02-13 11:33 | Outpatient (CLI) | payer OTHER, SELFPAY ==
--- NOTE | 2022-02-13 11:36 | NM_ITS ---
CLINICAL: 51-year-old female with history of hydronephrosis. 99m Tc MAG3 DIURETIC RENAL SCINTIGRAPHY COMPARISON: None available FINDINGS: Following the intravenous administration of 11.0 mCi of 99m Tc MAG3, renal images reveal: 1. The flow study demonstrates relatively symmetric, normal arterial phase distribution of the radiopharmaceutical to the bilateral kidneys. 2. Immediate static delayed nephrogram images depict prompt and homogeneous tracer concentration by the renal parenchyma of both renal units. Collecting structure visualization is noted by 4 minutes post tracer injection bilaterally. Washout of the radiopharmaceutical by the renal parenchyma of the left kidney appears qualitatively normal. Prolonged washout of the radiopharmaceutical by the renal parenchyma of the right kidney is defined. Spontaneous drainage of the left kidney collecting system is noted during 20 minutes of pre-Lasix sequential image acquisition. Persistent collecting system activity is noted in the right kidney prior to diuretic administration. 3. The vtgxe-mu-pcyo ratio of total renal parenchymal function was calculated to be 51/49. Furosemide 20 mg was administered intravenously. The post Lasix T ? washout of the right kidney collecting system was calculated to be > 20 minutes, (normal < 10 minutes). Analysis of the post LASIX right kidney collecting system time/activity curve demonstrates relatively plateaued count statistics. NM/Renal Scan w/ Pharm Intervent IMPRESSION: 1. There is scintigraphic evidence of preservation of left kidney renal parenchymal-cortical function. Cortical dysfunction is defined in the right kidney. 2. A normal physiologic response to FUROSEMIDE administration is defined in the left kidney collecting system. An abnormal response to diuresis is demonstrated in the right kidney collecting system consistent with a component of mechanical and/or functional obstruction. Electronically Signed: Carlo Crews, at 8:54 EST ,
== END 2022-02-13 23:59 | disposition home or self-care (01) ==
LOC: NM 11:35
PROVIDERS: PCP Family Medicine; Referring Provider Urology; Visit Provider Urology
DX: N13.30 Unspecified hydronephrosis (principal)
CPT/HCPCS: 78708; A9562; J1940

== ENCOUNTER 2022-03-05 08:58 | Day surgery (SDC) | payer OTHER, SELFPAY ==
[2022-03-05] VITALS (8 sets, daily range): BP systolic 102–120; BP diastolic 64–84; PULSE 55–78; RESP 16–67; TEMP 36.2–36.5; O2SAT 94–99; BMI 30.6
[2022-03-05] MEDS: Lactated Ringers 1,000 ML 15 ML IV (09:47)
--- NOTE | 2022-03-05 11:26 | DCINST_ITS ---
Discharge Instructions Diet Discharge Diet: No restrictions Activity Discharge Activity: Return to Normal Activity May resume sexual activity in: No Restrictions Dressing / Incision Call your doctor if you observe: Fever of 101 or Higher, Inability to urinate and Inability to have a bowel movement Follow Up Care Please Follow Up With: Diane Florence MD When: call office for appt in 2-3 weeks Test Results: Test results from this visit will be discussed in further detail at your follow- up appointment, if applicable. Discharge Plan Admission Attending Provider: Diane Florence Primary Care Provider: Kanu Jackson Discharge Orders/Prescriptions Prescriptions: New hydrocodone-acetaminophen [hydrocodone-acetaminophen] 5-325 mg tablet 1 tab PO Q4H PRN PRN (Reason: Pain) 3 Days Qty: 10 0RF cephalexin [cephalexin] 500 mg capsule 500 mg PO Q12 3 Days Qty: 6 0RF ondansetron HCl [ondansetron HCl] 8 mg tablet 8 mg PO Q8H PRN PRN (Reason: Nausea) 7 Days Qty: 20 0RF phenazopyridine [Pyridium] 200 mg tablet 200 mg PO TID PRN PRN (Reason: Bladder Spasms) 7 Days Qty: 30 0RF Continued buspirone 5 mg tablet 10 mg PO DAILY Referrals / Follow Up: Kanu Jackson MD [Primary Care Provider] - Disposition Disposition (needs filled in before D/C Order can be placed): Home, Self Care
--- NOTE | 2022-03-05 11:29 | OP.PCM_ITS ---
Report of Operation Date of Procedure: 03/05/22 Pre-Operative Diagnosis: right hydronephrosis Post-Operative Diagnosis: Right hydronephrosis consistent with UPJ obstruction, female urethral stricture Surgery/Procedure Performed:: cystoscopy, right retrograde pyelogram, right ure teroscopy, right ureteral stent insertion, urethral dilation Surgeon: Diane Florence Type of Anesthesia: General Description of Procedure: The patient is a 51-year-old female with abdominal pain found to have a right hydronephrosis on imaging. She subsequently underwent a renal Lasix scan revealing delayed drainage on the right side. She presents for further evaluation under anesthesia with cystoscopy, retrograde pyelogram, ureteroscopy and right ureteral stent insertion. Informed consent was obtained. The patient was taken to the operating room and placed in a supine position on the operating room table. Anesthesia monitored the head, neck, airway, IV access and vital signs throughout the case. Once anesthesia was appropriately administered, the patient was placed into dorsolithotomy position and was prepped and draped in usual sterile fashion. The urethral meatus was too small to accommodate the cystoscope and it was subsequently dilated using urethral sounds starting with [address] [place] [address] the way to 26 [place] with some cracking of the mucosa. The cystoscope then easily passed into the urinary bladder through the urethra under direct visualization. The bladder mucosa was visualized in its entirety revealing no evidence of mass, erythema, foreign body or other abnormality. The right ureteral orifice was gently intubated with an 8 [place] cone-tip catheter. Contrast was injected in retrograde fashion revealing a normal caliber ureter with a hydronephrotic kidney consistent with a UPJ obstruction. At this time a 0.035 Glidewire was inserted through the meatus into the renal pelvis is seen on fluoroscopy followed by a second Glidewire. An attempt was made at passage of the ureteroscope, the ureter would not accommodate it. The decision was then made to place a ureteral stent and this was done using the cystoscope. The 6 [place] 26 cm JJ stent had good positioning in the renal pelvis as well as the urinary bladder. The patient's bladder was then emptied and the case was terminated. The patient was awakened and taken to the recovery room in good condition. There were no complications during the procedure. Grafts/Implants Used: 6 x 26 JJ stent Complications none Admit VTE Documentation VTE Present on Admission: Yes VTE Mechan Device Prophylaxis: SCD's VTE Pharm Prophylaxis ordered?: No
[2022-03-05] MEDS: Cefazolin 2 GM in 0.9% Normal Saline 100 ML IV (11:39)
== END 2022-03-05 14:24 | disposition home or self-care (01) ==
LOC: SDC 09:00 → AC 09:01
PROVIDERS: PCP Family Medicine; Referring Provider Urology; Visit Provider Urology
PROC: 0TJ98ZZ Inspection of Ureter, Via Natural or Artificial Opening Endoscopic (ICD-10-PCS; CPT 52352; principal; 2022-03-05 11:00)
DX: N13.30 Unspecified hydronephrosis (principal); M54.50 Low back pain, unspecified; N35.92 Unspecified urethral stricture, female; K21.9 Gastro-esophageal reflux disease without esophagitis; F32.A Depression, unspecified; F41.9 Anxiety disorder, unspecified; M19.90 Unspecified osteoarthritis, unspecified site; F17.200 Nicotine dependence, unspecified, uncomplicated
CPT/HCPCS: 52332; 00910; 76000; J7120; C2617; J2405

== ENCOUNTER → 2022-10-01 | Outpatient (CLI) | payer BC, OTHER, SELFPAY | END | disposition home or self-care (01) | LOC: LABSPEC 17:52 | PROVIDERS: PCP Family Medicine; Visit Provider Nurse Practitioner Family | DX: R30.0 Dysuria (principal) | CPT/HCPCS: 87491; 87591 ==

== ENCOUNTER → 2022-10-30 | Outpatient (CLI) | payer BC, SELFPAY ==
--- NOTE | 2022-10-30 11:07 | NM_ITS ---
CLINICAL: 51-year-old female with history of right kidney hydronephrosis. 99m Tc MAG3 DIURETIC RENAL SCINTIGRAPHY COMPARISON: Previous diuretic renal scintigraphy study dated 02/13/2022 FINDINGS: Following the intravenous administration of 10.0 mCi of 99m Tc MAG3, renal images reveal: 1. The flow study demonstrates symmetric, normal arterial phase distribution of the radiopharmaceutical to the bilateral kidneys. 2. Immediate static delayed nephrogram images depict prompt and homogeneous concentration of the radiotracer by the bilateral renal units. Collecting structure visualization is noted approximately 2 minutes post tracer injection bilaterally. Washout of the radiopharmaceutical by the renal parenchyma of the left kidney is qualitatively normal and delayed in the right kidney. Persistent collecting system activity is noted in the right renal unit during 20 minutes of sequential image acquisition. There is spontaneous drainage of the left kidney collecting system prior to Lasix administration. 3. The [id number]-ug-[id number] ratio of total renal parenchymal function was calculated to be 49/51 compared to 51/49 defined on the prior examination.. Furosemide 10 mg was administered intravenously. The post Lasix T ? washout of the right kidney collecting system was calculated to be 17.75 minutes, (normal < 10 minutes). NM/Renal Scan w/ Pharm Intervent IMPRESSION: 1. There is redemonstration of preserved left kidney renal parenchymal-cortical function. Cortical dysfunction remains apparent in the right renal unit. 2. The left kidney collecting system demonstrates a normal response to furosemide administration negating the presence of significant mechanical and/or functional obstruction. An indeterminate response to Lasix provision is defined in the right kidney on the current examination (T ? > 10 and < 20 minutes). 3. Overall compared to the previous diuretic renal scintigraphy study dated 02/13/2022, the right kidney collecting system presently demonstrates an indeterminate response to furosemide administration compared to an abnormal response defined on the prior examination. Electronically Signed: Carlo Crews, at 12:00 EDT ,
== END | disposition home or self-care (01) ==
LOC: NM 11:04
PROVIDERS: PCP Family Medicine; Referring Provider Urology; Visit Provider Urology
DX: N13.30 Unspecified hydronephrosis (principal)
CPT/HCPCS: 78708; A9562; J1940

== ENCOUNTER → 2022-11-13 | Outpatient (CLI) | payer BC, SELFPAY ==
[2022-11-13 12:44] LABS: Anion Gap 6 (5-15); BUN 14 mg/dL (7-18); BUN/Creat Ratio 19.9 RATIO (10-20); Calcium,Total 9.6 mg/dL (8.5-10.1); Chloride 109 mmol/L (98-107); EST Glomerular Filtration Rate 92 mL/min (>60); Est Glom Filt Rate - Afr Amer 112 mL/min (>60); Glucose 103 mg/dL (74-106); Potassium 3.9 mmol/L (3.5-5.1); Sodium Level 139 mmol/L (136-145)
== END | disposition home or self-care (01) ==
LOC: LAB 11:03
PROVIDERS: PCP Family Medicine; Referring Provider Urology; Visit Provider Urology
DX: N13.30 Unspecified hydronephrosis (principal)
CPT/HCPCS: 36415; 80048

== ENCOUNTER → 2023-01-14 | Outpatient (CLI) | payer BC, SELFPAY ==
--- NOTE | 2023-01-14 10:36 | RAD_ITS ---
STUDY: X-RAY - CERVICAL SPINE REASON FOR EXAM: Female, 52 years old. NECK PAIN TECHNIQUE: 8 view(s) of the cervical spine were obtained. COMPARISON: None FINDINGS: Normal anterior atlantoaxial articulation. Normal odontoid process. There is straightening of the normal cervical lordosis. Normal vertebral bodies and endplates. There is multi-level degenerative disc disease with multilevel disc space narrowing most pronounced at C5-6 and C6-7.. Bilateral foraminal narrowing at C5-6 and C6-7. No instability on flexion or extension views The soft tissue structures are unremarkable. RAD/Cerv Spine Obl/Flex/Ext Comp IMPRESSION: Multilevel degenerative changes, no acute findings Electronically Signed: Luiz Mercado MD at 8:46 EDT ,
== END | disposition home or self-care (01) ==
LOC: MTRAD 10:34
PROVIDERS: PCP Family Medicine; Referring Provider Family Medicine; Visit Provider Family Medicine
DX: M54.2 Cervicalgia (principal)
CPT/HCPCS: 72052

== ENCOUNTER → 2023-10-20 | Outpatient (CLI) | payer BC, SELFPAY ==
--- NOTE | 2023-10-20 11:37 | NM_ITS ---
CLINICAL: 52-year-old female with history of congenital right ureteropelvic junction obstruction. 99m Tc MAG3 DIURETIC RENAL SCINTIGRAPHY COMPARISON: Previous diuretic renal scintigraphy study dated 10/30/2022 FINDINGS: Following the intravenous administration of 11.0 mCi of 99m Tc MAG3, renal images reveal: 1. The flow study demonstrates relatively symmetric and normal arterial phase distribution of the radiotracer to the bilateral kidneys, unchanged from the examination dated 10/30/2022. 2. Immediate static delayed nephrogram images depict relatively unchanged prompt and homogeneous radiopharmaceutical concentration by the renal parenchyma both kidneys. Collecting structure visualization is defined 2 minutes following tracer injection bilaterally. Washout of the radiopharmaceutical by the renal parenchyma of the left kidney is considered within normal limits and delayed-prolonged in the right kidney. Spontaneous drainage of the left kidney collecting system is noted prior to furosemide administration. There is persistent prominent collecting system activity noted in the right renal unit during 20 minutes of pre-Lasix sequential image acquisition. 3. The [id number]-og-jnxw ratio of total renal parenchymal function was calculated to be 47/53 compared to 49/51 calculated on the prior examination dated 10/30/2022. Furosemide 10 mg was administered intravenously. The post Lasix T ? washout of the persistently defined right kidney collecting system was calculated to be > 20 minutes compared to 17.75 minutes on the prior examination dated 10/30/2022, (normal < 10 minutes). Analysis of the post Lasix time/activity curve of the right kidney collecting system demonstrates plateaued count statistics. NM/Renal Scan w/ Pharm Intervent IMPRESSION: 1. Left kidney renal parenchymal function remains unchanged and normal. Renal parenchymal-cortical dysfunction persists in the right renal unit relatively unchanged. 2. The prominent right kidney collecting system continues to demonstrate an abnormal response to furosemide administration consistent with a presentation of mechanical and/or functional obstruction on the current examination. 3. Overall compared to the previous diuretic renal scintigraphy study dated 10/30/2022, there is little change in the normal function defined in the left kidney. Right kidney dysfunction remains apparent with a present abnormal collecting system physiologic response to diuresis as defined above. T ? Electronically Signed: Carlo Crews DO at 23:36 EDT ,
[2023-10-20 13:27] LABS: Anion Gap 5 (5-15); BUN 19 mg/dL (7-18); BUN/Creat Ratio 22.8 RATIO (10-20); Calcium,Total 9.3 mg/dL (8.5-10.1); Chloride 106 mmol/L (98-107); Cholesterol 228 mg/dL (200); Creatinine, Serum 0.83 mg/dL (0.55-1.02); EST Glomerular Filtration Rate 76 mL/min (>60); Est Glom Filt Rate - Afr Amer 91 mL/min (>60); Glucose 96 mg/dL (74-106); High Density Lipoprotein 69 mg/dL; Potassium 4.1 mmol/L (3.5-5.1); Sodium Level 138 mmol/L (136-145); Triglycerides 143 mg/dL; Very Low Density Lipoprotein 29 mg/dL (5-40)
[2023-10-20 17:06] LABS: Vitamin D,25 Hydroxy 28.6 ng/mL
== END | disposition home or self-care (01) ==
LOC: NM 11:33
PROVIDERS: PCP Family Medicine; Referring Provider Urology; Visit Provider Urology
DX: Z00.00 Encounter for general adult medical examination without abnormal findings (principal); Q62.11 Congenital occlusion of ureteropelvic junction
CPT/HCPCS: 36415; 78708; 80048; 80061; 82306; A9562; J1940

== ENCOUNTER 2023-10-28 15:10 | Outpatient (CLI) | payer BC, SELFPAY ==
--- NOTE | 2023-10-28 15:11 | BI_ITS ---
MAMMOGRAPHY - BILATERAL SCREENING 3-D TOMOSYNTHESIS REASON FOR EXAM: Female, 52 years old. SCREENING PERTINENT HISTORY: No significant family history. TECHNIQUE: 2-D mammograms and 3-D Tomosynthesis of the breast (s) were performed. CAD was performed. COMPARISON: 04/26/2019 FINDINGS: The breast composition is composed of scattered fibroglandular density. Scattered benign calcifications are seen. No dense spiculated masses or suspicious microcalcifications are identified. No architectural distortion is identified. There is no skin thickening or retraction. There has been no significant change since the prior study. BI/SCREENING MAMM (CAD), BILAT IMPRESSION: No mammographic signs of malignancy. Routine yearly mammograms recommended. ASSESSMENT CATEGORY: BIRADS Category 1: Negative. A letter regarding these results will be sent to the patient by the facility within 30 days. FOLLOW UP RECOMMENDATION: Yearly follow up mammogram recommended. (A) Approximately 10% of breast cancers are not detected by mammography. A normal mammogram should not delay biopsy of a clinically suspicious abnormality. Electronically Signed: Carlo Bradley MD at 13:49 EDT ,
--- NOTE | 2023-10-28 15:11 | BD_ITS ---
STUDY: DUAL ENERGY X-RAY ABSORPTIOMETRY / DXA REASON FOR EXAM: Female, 52 years old. V76.12ScreeningBONE DENSITY REASON FOR EXAM TECHNIQUE: Bone Mineral Density (BMD) measurements of lumbar spine and bilateral hips were obtained. COMPARISON: None. FINDINGS: Lumbar Spine (L1-L4): g/cm2 (0.813) / T-score (-2.0) / Z-score (-1.0) Findings are suggestive of osteopenia with a moderate fracture risk. Left Femur Total: g/cm2 (0.845) / T-score (-0.8) / Z-score (-0.1) Left Femoral Neck: g/cm2 (0.734) / T-score (-1.0) / Z-score (0.0) Right Femur Total: g/cm2 (0.839) / T-score (-0.8) / Z-score (-0.2) Right Femoral Neck: g/cm2 (0.697) / T-score (-1.4) / Z-score (-0.3) BD/Dexa Bone Density Study IMPRESSION: The patient is considered osteopenic as outlined below according to World Trey Organization (WHO) criteria with a moderate fracture risk. Reference Information: The T-score is the number of standard deviations above or below the standard which is normal for young adults at their peak bone mineral density. The World Health Organization (WHO) interprets the T-scores as follows: Above -1 Normal bone density Between -1 and -2.5 Osteopenia Equal to / or below -2.5 Osteoporosis As a practical clinical guideline, osteopenia may be graded as follows: Mild -1 through -1.5 Moderate -1.6 through -2.0 Severe -2.1 through -2.4 The Z-score is the number of standard deviations above or below age-matched controls. A Z-score of less than -1.5 would be considered abnormal. References: 1. NIH Osteoporosis and Related Bone Diseases www osteo.org 2. International Society for Clinical Densitometry www iscd.org 3. National Osteoporosis Foundation www nof.org Electronically Signed: Antonio Gonzalez MD at 15:45 EDT ,
--- NOTE | 2023-10-28 16:03 | CT_ITS ---
STUDY: LOW DOSE CT LUNG CANCER SCREENING REASON FOR EXAM: Female, 52 years old. SMOKING RADIATION DOSAGE (If Supplied By Facility): CTDIvol = ( 2.39 ) mGy, DLP = ( 75.23 ) mGycm TECHNIQUE: No contrast was administered. Low dose technique was utilized (average mAS-38 and kVp 120). 1.25 mm axial source images with a slice interval of 1.25-mm were reconstructed in lung windows. 2.5 mm axial source images with a slice interval of 2.5-mm were reconstructed in lung windows. 5.0 mm axial source images with a slice interval of 5.0-mm were reconstructed in soft tissue windows. COMPARISON: No relevant prior comparison study available NODULES: Total lung nodules (excluding granulomas): 0 Emphysema: Mild centrilobular . Endobronchial lesion: Minimal secretions in the trachea. Aorta: Normal caliber. CORONARY ARTERIES: Coronary artery calcification is seen. Heart: Normal size. No pericardial effusion. Pulmonary artery: Normal caliber. Mediastinal nodes: No mediastinal lymphadenopathy. Other chest and abdominal findings: No gross abnormality of the upper abdomen. Degenerative changes of the spine. CT/Low Dose CT Lung Screening IMPRESSION: Lung-RADS category 1 - Continue annual screening with LDCT in 12 months. IMPORTANT NOTES FOR USE: ACR Lung-RADS Version 1.1 Assessment Categories Release Date: 2018 Category: Coded 0-4 bases on nodule(s) with highest degree of suspicion. Negative screen is defined as categories 1 and 2; a positive screen is defined as categories 3 and 4. Category 3 and 4A nodules that are unchanged on interval CT should be coded as category 2, and individuals returned to screening in 12 months. Category 4X: Category 3 or 4 nodules with additional imaging findings that increase the suspicion of lung cancer, such as spiculation, GGN that doubles in size in 1 year, enlarged lymph notes, etc. Category Modifiers: S (significant finding unrelated to lung cancer) Electronically Signed: Sukhi Peguero MD at 13:36 EDT ,
== END 2023-10-28 23:59 | disposition home or self-care (01) ==
LOC: OPBD 15:11
PROVIDERS: PCP Family Medicine; Referring Provider Family Medicine; Visit Provider Family Medicine
DX: Z00.00 Encounter for general adult medical examination without abnormal findings (principal); Z12.31 Encounter for screening mammogram for malignant neoplasm of breast; F17.200 Nicotine dependence, unspecified, uncomplicated; Z12.2 Encounter for screening for malignant neoplasm of respiratory organs; M85.80 Other specified disorders of bone density and structure, unspecified site
CPT/HCPCS: 71271; 77067; 77080